=== PATIENT | male | born 1995 | race Caucasian/White ===

== ENCOUNTER 2023-12-27 18:26 | Inpatient (IN) ==
[2023-12-27] MEDS: ONDANSETRON INJ 2 MG/ML 2 ML VIAL ONE (19:14)
[2023-12-27] MEDS: ONDANSETRON INJ 2 MG/ML 2 ML VIAL IV STA (19:14)
[2023-12-27 19:34] LABS: Appearance Urine Clear (Clear); Bacteria Urine Automated None Seen (None Seen); Bilirubin Urine 2+ (Negative); Blood Urine Negative (Negative); Cast Urine Automated 0-2 /lpf (0-2); Color Urine Dark Yellow; Epithelial Cell Urine Auto 0-2 /hpf (0-2); Glucose Urine UA Negative (Negative); Ketones Urine Negative (Negative); Leukocyte Esterase Urine Trace (Negative); Nitrite Urine Negative (Negative); Protein Urine Negative (Negative); RBC Urine Automated 0-2 /hpf (0-2); Specific Gravity Urine 1.019 (1.000-1.030); Urobilinogen Urine Negative (Negative); WBC Urine Automated 0-5 /hpf (0-5)
[2023-12-27 19:35] LABS: Basophils # (auto) 0.08 K/uL (0.00-0.20); Basophils % (auto) 0.6 %; Eosinophils # (auto) 0.28 K/uL (0.00-0.50); Eosinophils % (auto) 2.2 %; Hematocrit (blood only) 41.7 % (37.0-47.0); Hemoglobin 14.1 g/dl (12.0-16.0); Immature Granulocytes # (auto) 0.04 K/uL (0.01-0.20); Immature Granulocytes % (auto) 0.3 %; Lymphocytes # (auto) 3.29 K/uL (1.20-3.40); Lymphocytes % (auto) 25.9 %; Mean Corpuscular Hemoglobin 29.8 pg (25.0-34.0); Mean Corpuscular Hgb Conc 33.8 g/dL (32.0-36.0); Mean Corpuscular Volume 88.2 fL (80.0-100.0); Mean Platelet Volume 10.6 fL (9.4-12.4); Monocytes # (auto) 0.65 K/uL (0.11-0.59); Monocytes % (auto) 5.1 %; Neutrophils # (auto) 8.35 K/uL (1.40-6.50); Neutrophils % (auto) 65.9 %; Platelet Count 347 K/uL (130-400); RDW Coefficient of Variation 13.1 % (11.5-14.5); RDW Standard Deviation 42.2 fL (36.4-46.3); Red Blood Count 4.73 M/uL (4.20-5.40); White Blood Count 12.69 K/ul (4.8-10.8)
[2023-12-27] MEDS: SODIUM CHLORIDE 0.9% 1,000 ML IV ONE (19:41)
[2023-12-27] MEDS: FAMOTIDINE 20MG IV PUSH 20 MG/5 ML SYR IV STA (19:41)
--- NOTE | 2023-12-27 19:42 | Emergency Department Note ---
Impression & Plan Transaminitis, Upper abdominal pain, Nausea & vomiting ED Provider Note NAME: ENEDELIA RICARDO AGE: 28 SEX: F : 1995 ARRIVES VIA: Walk-In INFORMANT: Patient ED PROVIDER(S): Quintin Moreno MD CHIEF COMPLAINT: upper abdominal pain, n/v PLAN: Disposition: Home MEDICAL DECISION MAKING: The patient is a pleasant 28-year-old transgender male to female person who presents to the emergency department via walk-in accompanied by her for evaluation of upper abdominal pain with nausea and vomiting that began yesterday after eating eggs for breakfast and worsened today after patient reports feeling some improvement and so decided to eat [employer] and then symptoms became acutely worse. She denies any fevers. She reports some loose stool but denies frequent diarrhea. She denies any cough, congestion, chest pain or shortness of breath. She denies any similar episodes of symptoms. She reports she has had CT imaging for appendicitis in the past in [place] where she recently moved from but was unaware of having gallstones at the time. Of note, the patient did arrive to emergency department during time of high volume, acuity and prolonged emergency department waiting times. Critical pathways initiated from triage. WBC 12.6 K with neutrophil predominance but no left shift, nonspecific. H/H and platelets within normal limits. Chemistry without metabolic acidosis. LFTs are elevated with total bilirubin 2.8, direct eleven 2.0 and AST and ALT 351 and 388, respectively with alk phos within normal limits. Lipase is not elevated. UA without evidence of infection. On evaluation the patient is no distress, afebrile stable vital signs. She has mild upper quadrant. Tenderness without guarding or rebound. She has a negative Modi sign. I did perform a limited bedside right upper quadrant ultrasound which demonstrates cholelithiasis without evidence of cholecystitis. Formal gallbladder ultrasound was ordered. This demonstrates cholelithiasis without sonographic evidence of acute cholecystitis. CBD is within normal limits at 4.3 mm without stones or dilatation. There is no pericholecystic fluid. Sonographic Modi sign is negative. Note is made of mild hepatomegaly with description of ill-defined heterogeneity within the right hepatic lobe which is nonspecific and pre and postcontrast CT of the abdomen pelvis is recommended for further evaluation if clinically warranted. Given the patient's upper abdominal pain with transaminitis of unclear chronicity CT imaging was then ordered. Upon my reevaluation patient did report some improvement after IV hydration, IM dicyclomine. However still with dull upper abdominal pain. Given no evidence of biliary obstruction on ultrasound suspect he will be biliary obstruction is less likely though not completely excluded. Given persistent symptoms patient did agree with plan for admission for further observation and testing, MRCP. [facility] will [facility] the patient for admission. CT of the abdomen pelvis with and without contrast subsequently with final radiology interpretation and no acute findings are identified. Specifically, diarrhea heterogeneity identified on prior ultrasound is not visualized. Findings likely represent very mild focal fatty infiltration. Further management per admitting team. Triage Nursing notes reviewed and agree them. Prior/external medical records reviewed Vital Signs: reviewed Differential diagnosis: Gastroenteritis, food borne illness, infections, appendicitis, diverticulitis, inflammatory bowel disease, obstruction, GI bleed, biliary pathology, volvulus, as well as other pathologies. ER treatment provided: See below. Diagnostics interpreted by me: Cardiac Monitoring: An order for continuous cardiac monitoring was placed and demonstrated normal sinus rhythm, 70 bpm, no ectopy. Laboratory studies: See below Imaging studies: See below Consultation(s): Case was discussed with Dr. Matamoros, [facility], who will evaluate the patient for admission. HPI: The patient is a pleasant 28-year-old transgender male to female person who presents to the emergency department via walk-in accompanied by her for evaluation of upper abdominal pain with nausea and vomiting that began yesterday after eating eggs for breakfast and worsened today after patient reports feeling some improvement and so decided to eat [employer] and then symptoms became acutely worse. She denies any fevers. She reports some loose stool but denies frequent diarrhea. She denies any cough, congestion, chest pain or shortness of breath. She denies any similar episodes of symptoms. She reports she has had CT imaging for appendicitis in the past in [place] where she recently moved from but was unaware of having gallstones at the time. ROS: See above HPI for pertinent positives & negatives. A total of 10 systems reviewed and were otherwise negative. VITALS:See Below PHYSICAL EXAMINATION: GENERAL: Awake, alert, fatigued-appearing, in no distress, BMI 37.1. HENT: Normocephalic, atraumatic. Oropharynx with dry mucous membranes and otherwise unremarkable. EYES: Normal conjunctiva. Sclera non-icteric. NECK: Supple. No nuchal rigidity. FROM. No JVD. RESPIRATORY: Clear to auscultation. CARDIAC: Regular rate, normal rhythm. Extremities warm and well perfused. Pulses equal. ABDOMEN: Soft, non-distended. Mild RUQ tenderness to palpation. No rebound or guarding. MUSCULOSKELETAL: Chest examination reveals no tenderness. The back is symmetrical on inspection without obvious abnormality. There is no CVA tenderness to palpation. No joint edema. LOWER EXTREMITIES: Calves are equal size bilaterally and non-tender. No edema. No discoloration. NEURO: Normal sensorium. No sensory or motor deficits noted. SKIN: No rash or jaundice noted. 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 Social History Smoking Status: Never smoker Preferred Language: Faroese Feels Safe at Home: Yes Gender Identity: Female Allergies Allergies Allergy/AdvReac Type Severity Reaction Status Date / Time Cephalosporins Allergy Severe Hives Verified 12/27/23 22:13 Home Meds Home Medications Medication Instructions Recorded Confirmed cetirizine 10 mg tablet (Zyrtec) 10 mg PO DAILY 12/27/23 12/27/23 escitalopram oxalate 20 mg tablet 20 mg PO QAM 12/27/23 12/27/23 estradiol valerate 20 mg/mL See Rx Instructions .Route .COMPLEX 12/27/23 12/27/23 intramuscular oil levothyroxine 50 mcg tablet 50 mcg PO DAILYBB 12/27/23 12/27/23 omeprazole 20 mg capsule,delayed 20 mg PO QAM 12/27/23 12/27/23 release progesterone micronized 200 mg 200 mg PO HS 12/27/23 12/27/23 capsule spironolactone 50 mg tablet 50 mg PO AMHS 12/27/23 12/27/23 Results & Data (ED) Vital Signs Vital Signs - 24 hr 12/27/23 18:40 12/27/23 19:23 12/27/23 19:29 Temperature 37 C Temperature Source Temporal Artery Scan Pulse Rate 70 70 Pulse Rate [Apical] Respiratory Rate 18 18 Respiratory Effort / Characteristics Non-Labored Respiratory Depth Normal Respiratory Pattern Blood Pressure 132/86 Blood Pressure [Right Arm] Blood Pressure Mean 101 Blood Pressure Mean [Right Arm] Pulse Oximetry 99 97 Oxygen Delivery Method Room Air Room Air Sepsis Recent Fever Within 48 Hours No Sepsis New/Unexplained Change in Mental Status No Sepsis Action Taken by Nursing No Action Required 12/27/23 19:34 12/27/23 21:00 12/27/23 23:00 Temperature Temperature Source Pulse Rate 73 Pulse Rate [Apical] 79 60 Respiratory Rate 18 18 Respiratory Effort / Characteristics Non-Labored Non-Labored Respiratory Depth Normal Normal Respiratory Pattern Regular Regular Blood Pressure Blood Pressure [Right Arm] 131/94 129/90 Blood Pressure Mean Blood Pressure Mean [Right Arm] 106 103 Pulse Oximetry 98 98 Oxygen Delivery Method Room Air Room Air Sepsis Recent Fever Within 48 Hours Sepsis New/Unexplained Change in Mental Status Sepsis Action Taken by Nursing 12/27/23 23:45 12/28/23 01:00 Temperature Temperature Source Pulse Rate 62 Pulse Rate [Apical] 60 Respiratory Rate 18 Respiratory Effort / Characteristics Non-Labored Respiratory Depth Normal Respiratory Pattern Blood Pressure Blood Pressure [Right Arm] 133/88 Blood Pressure Mean Blood Pressure Mean [Right Arm] 103 Pulse Oximetry 97 Oxygen Delivery Method Room Air Sepsis Recent Fever Within 48 Hours Sepsis New/Unexplained Change in Mental Status Sepsis Action Taken by Nursing Laboratory Data Attestation: I reviewed the patient's lab results. 12/27/23 19:15 12/27/23 19:15 Lab Results 12/27/23 Range/Units 19:15 WBC 12.69 H (4.8-10.8) K/ul RBC 4.73 (4.20-5.40) M/uL Hgb 14.1 (12.0-16.0) g/dl Hct 41.7 (37.0-47.0) % MCV 88.2 (80.0-100.0) fL MCH 29.8 (25.0-34.0) pg MCHC 33.8 (32.0-36.0) g/dL RDW Std Deviation 42.2 (36.4-46.3) fL RDW Coeff of Radha 13.1 (11.5-14.5) % Plt Count 347 (130-400) K/uL MPV 10.6 (9.4-12.4) fL Immature Gran % (Auto) 0.3 % Neut % (Auto) 65.9 % Lymph % (Auto) 25.9 % Fisher % (Auto) 5.1 % Eos % (Auto) 2.2 % Baso % (Auto) 0.6 % Neut # (Auto) 8.35 H (1.40-6.50) K/uL Lymph # (Auto) 3.29 (1.20-3.40) K/uL Fisher # (Auto) 0.65 H (0.11-0.59) K/uL Eos # (Auto) 0.28 (0.00-0.50) K/uL Baso # (Auto) 0.08 (0.00-0.20) K/uL Immature Gran # (Auto) 0.04 (0.01-0.20) K/uL Sodium 135 L (136-145) mmol/L Potassium 4.2 (3.5-5.1) mmol/L Chloride 103 (98-107) mmol/L Carbon Dioxide 25 (21-32) mmol/L Anion Gap 7 (3-11) BUN 11 (6-23) mg/dl Creatinine 0.87 (0.6-1.2) mg/dl Est Cr Clr Drug Dosing 148.9 ml/min Est GFR ( Amer) 106.6 ml/min Est GFR (Non-Af Amer) 91.9 ml/min BUN/Creatinine Ratio 12.6 (10-20) Glucose 101 H (70-99(Fasting)) mg/dl Calcium 9.5 (8.6-10.3) mg/dl Total Bilirubin 2.8 H (0.2-1.0) mg/dl Direct Bilirubin 2.0 H (0-0.2) mg/dl AST 351 H (13-39) U/L ALT 388 H (7-52) U/L Alkaline Phosphatase 85 (34-104) U/L Total Protein 7.5 (6.0-8.3) gm/dl Albumin 4.7 (3.4-5.0) gm/dl Globulin 2.8 (2.5-4.0) gm/dl Albumin/Globulin Ratio 1.7 (0.9-2) Lipase 31 (11-82) U/L HCG, Qual Negative (Negative) Urine Color Dark Yellow Urine Appearance Clear (Clear) Urine pH 6.0 (4.5-7.5) Ur Specific [place] 1.019 (1.000-1.030) Urine Protein Negative (Negative) Urine Glucose (UA) Negative (Negative) Urine Ketones Negative (Negative) Urine Blood Negative (Negative) Urine Nitrite Negative (Negative) Urine Bilirubin 2+ H (Negative) Urine Urobilinogen Negative (Negative) Ur Leukocyte Esterase Trace H (Negative) Urine WBC (Auto) 0-5 (0-5) /hpf Urine RBC (Auto) 0-2 (0-2) /hpf U Hyaline Cast (Auto) 0-2 (0-2) /lpf U Epithel Cells (Auto) 0-2 (0-2) /hpf Urine Bacteria (Auto) None Seen (None Seen) Administered Medications Discontinued Medications Dicyclomine HCl (Dicyclomine Hcl 10 Mg/Ml 2 Ml Amp/Vial) 20 mg IM NOW ONE Stop: 12/27/23 22:41 Last Admin: 12/27/23 23:11 Dose: 20 mg Documented By: SHIRIN Sodium Chloride (Nss) 1,000 mls @ 999 mls/hr IV .Q1H1M ONE Stop: 12/27/23 20:36 Last Infusion: 12/27/23 21:19 Dose: Infused Documented By: Admin: 12/27/23 19:41 Dose: 999 mls/hr Documented By: DENISE Famotidine (Pepcid 20mg Iv Push) 20 mg in 5 mls @ 2.5 mls/min IV NOW STA Stop: 12/27/23 19:37 Last Admin: 12/27/23 19:41 Dose: 2.5 mls/min Documented By: DENISE Ioversol (Optiray 320 100ml) 94 ml IV ONCE ONE Stop: 12/27/23 22:12 Last Admin: 12/27/23 22:11 Dose: 94 ml Documented By: ROLANDO Ondansetron HCl (Ondansetron Inj 2 Mg/Ml 2 Ml Vial) 4 mg IV NOW STA Stop: 12/27/23 19:11 Last Admin: 12/27/23 19:14 Dose: 4 mg Documented By: BE Ondansetron HCl (Ondansetron Inj 2 Mg/Ml 2 Ml Vial) Confirm Administered Dose 4 mg .ROUTE .[employer] Live Chat ONE Stop: 12/27/23 19:12 Last Admin: 12/27/23 19:14 Dose: Not Given Documented By: GGG Imaging Data Radiologist's Impression: Gallbladder Ultrasound 12/27/23 20:03 Exam(s): US GALLBLADDER EXAM: US Abdomen Limited, Gallbladder CLINICAL HISTORY: Reason for exam: RUQ abd pain transaminitis. TECHNIQUE: Real-time ultrasound of the right upper quadrant with image documentation. COMPARISON: No relevant prior studies available. FINDINGS: Liver: Mild hepatomegaly. Area of ill-defined heterogeneity within the right hepatic lobe. Gallbladder: Cholelithiasis. Gallbladder wall there is within normal limits measuring 3 mm. No pericholecystic fluid. Sonographic Modi sign is negative. Common bile duct: Common bile duct within normal limits measuring 4.3 mm. No stones. No dilation. Pancreas: Unremarkable as visualized. Right kidney: Unremarkable. No stones. No right-sided hydronephrosis. IMPRESSION: Cholelithiasis without sonographic evidence of acute cholecystitis Hepatomegaly and ill-defined area of heterogeneity within the right hepatic lobe. This is a nonspecific finding. Pre-and postcontrast CT of the abdomen and pelvis may be obtained for further evaluation if clinically warranted. Electronically signed by: Willem Lin MD 12/27/23 21:34 PM Abdomen/Pelvis CT 12/27/23 21:43 Exam(s): CT ABDOMEN + PELVIS W/WO Contrast IV Amt: 94 ml optiray 320 EXAM: CT Abdomen and Pelvis Without and With Intravenous Contrast CLINICAL HISTORY: Reason for exam: RUQ abd pain, tranaminitis, eval liver heterogeneity. TECHNIQUE: Axial computed tomography images of the abdomen and pelvis without and with intravenous contrast. Automated exposure control was utilized for the study. A dose lowering technique was utilized adhering to the principles of ALARA. CONTRAST: Patient received 94 ml optiray 320 of IV contrast COMPARISON: Reference made to prior ultrasound performed earlier on the same date FINDINGS: Lung bases: Unremarkable. No mass. No consolidation. ABDOMEN: Liver: The area of heterogeneity within the right hepatic lobe described on the prior ultrasound is not seen on the current study. Mild hepatomegaly. Gallbladder and bile ducts: Cholelithiasis without evidence of acute cholecystitis. No ductal dilation. Pancreas: Unremarkable. No mass. No ductal dilation. Spleen: Unremarkable. No splenomegaly. Adrenals: Unremarkable. No mass. Kidneys and ureters: Unremarkable. No solid mass. No obstructing stones. No hydronephrosis. Stomach and bowel: Unremarkable. No obstruction. No mucosal thickening. PELVIS: Appendix: Postoperative changes prior appendectomy. Bladder: Unremarkable. No mass. No stones. Reproductive: Unremarkable as visualized. ABDOMEN and PELVIS: Intraperitoneal space: Unremarkable. No free air. No significant fluid collection. Bones/joints: No acute fracture. No dislocation. Soft tissues: Unremarkable. Vasculature: Unremarkable. No abdominal aortic aneurysm. Lymph nodes: Unremarkable. No enlarged lymph nodes. IMPRESSION: No acute findings in the abdomen or pelvis. Specifically the area of heterogeneity identified within the right hepatic lobe on the prior ultrasound is not seen on this exam. Findings likely represent very mild focal fatty infiltration. Electronically signed by: Willem Lin MD 12/28/23 00:00 AM Discharge Plan Visit Data Chief Complaint: Abdominal Pain Stated Complaint: UPPER ABD PAIN ED Provider: Quintin Moreno Discharge Problem: Transaminitis, Upper abdominal pain, Nausea & vomiting Forms [facility] Prescriptions: No Action estradiol valerate 20 mg/mL oil See Rx Instructions .ROUTE .COMPLEX Rx Instructions: inject 0.35 ml into a large muscle once a week on WEDNESDAYS levothyroxine 50 mcg tablet 50 mcg PO DAILYBB progesterone micronized 200 mg capsule 200 mg PO HS omeprazole 20 mg capsule,delayed release(DR/EC) 20 mg PO QAM spironolactone 50 mg tablet 50 mg PO AMHS escitalopram oxalate 20 mg tablet 20 mg PO QAM cetirizine [Zyrtec] 10 mg Tablet 10 mg PO DAILY Referrals Referrals: Melanie John MD [Primary Care Provider] - Discharge Problem: Nausea & vomiting Qualifiers: Vomiting type: unspecified Qualified Code(s): R11.2 - Nausea with vomiting, unspecified
[2023-12-27 19:50] LABS: Albumin Globulin Ratio 1.7 (0.9-2); Albumin Level 4.7 gm/dl (3.4-5.0); BUN Creatinine Ratio 12.6 (10-20); Bilirubin,Total 2.8 mg/dl (0.2-1.0); Calcium 9.5 mg/dl (8.6-10.3); Creatinine Clr Calc Pharmacy 148.9 ml/min; Est GFR (African American) 106.6 ml/min; Est GFR (Non-African American) 91.9 ml/min; Globulin 2.8 gm/dl (2.5-4.0); Potassium 4.2 mmol/L (3.5-5.1); Total Protein 7.5 gm/dl (6.0-8.3)
[2023-12-27 20:02] LABS: Pregnancy Test, Serum Negative (Negative)
--- NOTE | 2023-12-27 21:35 | Ultrasound Report ---
Exam(s): US GALLBLADDER EXAM: US Abdomen Limited, Gallbladder CLINICAL HISTORY: Reason for exam: RUQ abd pain transaminitis. TECHNIQUE: Real-time ultrasound of the right upper quadrant with image documentation. COMPARISON: No relevant prior studies available. FINDINGS: Liver: Mild hepatomegaly. Area of ill-defined heterogeneity within the right hepatic lobe. Gallbladder: Cholelithiasis. Gallbladder wall there is within normal limits measuring 3 mm. No pericholecystic fluid. Sonographic Modi sign is negative. Common bile duct: Common bile duct within normal limits measuring 4.3 mm. No stones. No dilation. Pancreas: Unremarkable as visualized. Right kidney: Unremarkable. No stones. No right-sided hydronephrosis. IMPRESSION: Cholelithiasis without sonographic evidence of acute cholecystitis Hepatomegaly and ill-defined area of heterogeneity within the right hepatic lobe. This is a nonspecific finding. Pre-and postcontrast CT of the abdomen and pelvis may be obtained for further evaluation if clinically warranted. Electronically signed by: Willem Lin MD 12/27/23 21:34 PM
[2023-12-27] MEDS: OPTIRAY 320 100ml IV ONE (22:11)
[2023-12-27] MEDS: DICYCLOMINE HCL 10 MG/ML 2 ML AMP/VIAL IM ONE (23:11)
--- NOTE | 2023-12-28 | CT Scan Report ---
Exam(s): CT ABDOMEN + PELVIS W/WO Contrast IV Amt: 94 ml optiray 320 EXAM: CT Abdomen and Pelvis Without and With Intravenous Contrast CLINICAL HISTORY: Reason for exam: RUQ abd pain, tranaminitis, eval liver heterogeneity. TECHNIQUE: Axial computed tomography images of the abdomen and pelvis without and with intravenous contrast. Automated exposure control was utilized for the study. A dose lowering technique was utilized adhering to the principles of ALARA. CONTRAST: Patient received 94 ml optiray 320 of IV contrast COMPARISON: Reference made to prior ultrasound performed earlier on the same date FINDINGS: Lung bases: Unremarkable. No mass. No consolidation. ABDOMEN: Liver: The area of heterogeneity within the right hepatic lobe described on the prior ultrasound is not seen on the current study. Mild hepatomegaly. Gallbladder and bile ducts: Cholelithiasis without evidence of acute cholecystitis. No ductal dilation. Pancreas: Unremarkable. No mass. No ductal dilation. Spleen: Unremarkable. No splenomegaly. Adrenals: Unremarkable. No mass. Kidneys and ureters: Unremarkable. No solid mass. No obstructing stones. No hydronephrosis. Stomach and bowel: Unremarkable. No obstruction. No mucosal thickening. PELVIS: Appendix: Postoperative changes prior appendectomy. Bladder: Unremarkable. No mass. No stones. Reproductive: Unremarkable as visualized. ABDOMEN and PELVIS: Intraperitoneal space: Unremarkable. No free air. No significant fluid collection. Bones/joints: No acute fracture. No dislocation. Soft tissues: Unremarkable. Vasculature: Unremarkable. No abdominal aortic aneurysm. Lymph nodes: Unremarkable. No enlarged lymph nodes. IMPRESSION: No acute findings in the abdomen or pelvis. Specifically the area of heterogeneity identified within the right hepatic lobe on the prior ultrasound is not seen on this exam. Findings likely represent very mild focal fatty infiltration. Electronically signed by: Willem Lin MD 12/28/23 00:00 AM
[2023-12-28] MEDS ORDERED: HYDROmorphone INJ 0.5 MG/0.5 ML SYR IV PRN ×2 (02:03)
[2023-12-28] MEDS ORDERED: ONDANSETRON INJ 2 MG/ML 2 ML VIAL IV PRN (02:03)
--- NOTE | 2023-12-28 02:32 | History & Physical Report ---
Date of Service December 28, 2023 Assessment & Plan (1) Upper abdominal pain: Plan: 28-year-old transgender male to female with past med history significant for hypothyroidism, tracheobronchomalacia, recurrent sinus infection, mild persistent asthma, GERD, history of scrotal mass, migraine, depression presents with abdominal pain and found to have elevated LFTs. Patient states around noon time noticed pain in the abdomen in the right upper quadrant region associated with some nausea and vomiting which prompted patient to come to ER. Currently pain is improved. Denies any fevers. No chest pain or shortness of breath. No cough. No headache no dizziness , no blurred vision. No runny nose or sore throat.. Appetite has been down for last couple of days. Normal bowel and bladder movements. Currently resting comfortably and hemodynamically stable. Upper abdominal pain Total bilirubin 2.8 Direct bilirubin 2 AST 351 ALT 388 Alkaline phosphatase 85 Gallbladder ultrasound shows cholelithiasis without evidence of acute cholecystitis. Questionable heterogenicity within the right hepatic lobe CT abdomen pelvis with and without contrast no acute findings Follow repeat labs in a.m. N.p.o. for now IV fluids Pain control Will follow acute hepatitis panel Consult GI in a.m. for further recommendations Depression Lexapro GERD Omeprazole Hypothyroidism Synthyroid DVT prophylaxis SCDs for now Disposition Medical floor Full code. History of Present Illness Chief Complaint: Abdominal pain Primary Care Provider: Melanie John MD 28-year-old transgender male to female with past med history significant for hypothyroidism, tracheobronchomalacia, recurrent sinus infection, mild persistent asthma, GERD, history of scrotal mass, migraine, depression presents with abdominal pain and found to have elevated LFTs. Patient states around noon time noticed pain in the abdomen in the right upper quadrant region associated with some nausea and vomiting which prompted patient to come to ER. Currently pain is improved. Denies any fevers. No chest pain or shortness of breath. No cough. No headache no dizziness , no blurred vision. No runny nose or sore throat.. Appetite has been down for last couple of days. Normal bowel and bladder movements. Currently resting comfortably and hemodynamically stable. Past medical history. As mentioned above Past surgical history. Partial removal of benign left thyroid lobe. Appendectomy. Tonsillectomy and adenoidectomy. Repair of inguinal inguinal hernia. Sinus surgery. Social history. No smoking. Drinks alcohol. No drug use. Family history. Mother had Alzheimer's disease. Sister anxiety disorder. Depression. Father had heart disorder. Bradycardia. TIA. Allergies Allergy/AdvReac Type Severity Reaction Status Date / Time Cephalosporins Allergy Severe Hives Verified 12/27/23 22:13 Home Medications Medication Instructions Recorded Confirmed Type cetirizine 10 mg tablet (Zyrtec) 10 mg PO DAILY 12/27/23 12/27/23 History escitalopram oxalate 20 mg tablet 20 mg PO QAM 12/27/23 12/27/23 History estradiol valerate 20 mg/mL See Rx Instructions .Route .COMPLEX 12/27/23 12/27/23 History intramuscular oil levothyroxine 50 mcg tablet 50 mcg PO DAILYBB 12/27/23 12/27/23 History omeprazole 20 mg capsule,delayed 20 mg PO QAM 12/27/23 12/27/23 History release progesterone micronized 200 mg 200 mg PO HS 12/27/23 12/27/23 History capsule spironolactone 50 mg tablet 50 mg PO AMHS 12/27/23 12/27/23 History Past Med/Surg History Problem List (Updated 12/28/23 @ 00:02 by Quintin Moreno MD) Nausea & vomiting (Acute) Upper abdominal pain (Acute) Transaminitis (Acute) Medical History Transgender person on hormone therapy Social History Smoking Status: Never smoker Hx Alcohol Use: Yes Alcohol type: wine Hx Substance Use: No Preferred Language: Azeri Communication Ability: Effective School Child Care Attendant Required: No Beliefs That Will Affect Care: None Current Living Situation: Spouse Feels Safe at Home: Yes Safety Concerns: Feels Safe At This Time Gender Identity: Female Assistive Devices: None Review of Systems Review of Systems: All systems reviewed & are unremarkable except as noted in HPI & below Physical Exam Physical Exam: General- Not in distress Head- atraumatic Eyes- PERRL. ENT- oropharynx clear Neck- supple, no JVD. Lungs- clear to auscultation no wheezing or crackles Heart- regular rhythm; no murmur, no gallop. Abdomen- normal bowel sounds, soft, ruq tenderness present, no distension Extremities- no pretibial edema, no erythema seen. Neuro- alert, oriented PERRL, no facial palsy; no dysarthria; moves extremities. Results & Data Results & Data Vital Signs (Past 12 Hours) Vital Signs Temp Pulse Pulse Resp BP BP Pulse Ox 12/28/23 01:00 60 18 133/88 97 12/27/23 23:45 62 12/27/23 23:00 60 18 129/90 98 12/27/23 21:00 79 18 131/94 98 12/27/23 19:34 73 12/27/23 19:29 70 18 97 12/27/23 18:40 37 C 70 18 132/86 99 O2 Del Method 12/28/23 01:00 Room Air 12/27/23 23:45 12/27/23 23:00 Room Air 12/27/23 21:00 Room Air 12/27/23 19:34 12/27/23 19:29 Room Air 12/27/23 18:40 Room Air Diagnostic Findings Laboratory Results WBC 12.69 K/ul (4.8-10.8) H 12/27/23 19:15 RBC 4.73 M/uL (4.20-5.40) 12/27/23 19:15 Hgb 14.1 g/dl (12.0-16.0) 12/27/23 19:15 Hct 41.7 % (37.0-47.0) 12/27/23 19:15 MCV 88.2 fL (80.0-100.0) 12/27/23 19:15 MCH 29.8 pg (25.0-34.0) 12/27/23 19:15 MCHC 33.8 g/dL (32.0-36.0) 12/27/23 19:15 RDW Std Deviation 42.2 fL (36.4-46.3) 12/27/23 19:15 RDW Coeff of Radha 13.1 % (11.5-14.5) 12/27/23 19:15 Plt Count 347 K/uL (130-400) 12/27/23 19:15 MPV 10.6 fL (9.4-12.4) 12/27/23 19:15 Immature Gran % (Auto) 0.3 % 12/27/23 19:15 Neut % (Auto) 65.9 % 12/27/23 19:15 Lymph % (Auto) 25.9 % 12/27/23 19:15 [place] % (Auto) 5.1 % 12/27/23 19:15 Eos % (Auto) 2.2 % 12/27/23 19:15 Baso % (Auto) 0.6 % 12/27/23 19:15 Neut # (Auto) 8.35 K/uL (1.40-6.50) H 12/27/23 19:15 Lymph # (Auto) 3.29 K/uL (1.20-3.40) 12/27/23 19:15 [place] # (Auto) 0.65 K/uL (0.11-0.59) H 12/27/23 19:15 Eos # (Auto) 0.28 K/uL (0.00-0.50) 12/27/23 19:15 Baso # (Auto) 0.08 K/uL (0.00-0.20) 12/27/23 19:15 Immature Gran # (Auto) 0.04 K/uL (0.01-0.20) 12/27/23 19:15 Sodium 135 mmol/L (136-145) L 12/27/23 19:15 Potassium 4.2 mmol/L (3.5-5.1) 12/27/23 19:15 Chloride 103 mmol/L (98-107) 12/27/23 19:15 Carbon Dioxide 25 mmol/L (21-32) 12/27/23 19:15 Anion Gap 7 (3-11) 12/27/23 19:15 BUN 11 mg/dl (6-23) 12/27/23 19:15 Creatinine 0.87 mg/dl (0.6-1.2) 12/27/23 19:15 Est Cr Clr Drug Dosing 148.9 ml/min 12/27/23 19:15 Est GFR ( Amer) 106.6 ml/min 12/27/23 19:15 Est GFR (Non-Af Amer) 91.9 ml/min 12/27/23 19:15 BUN/Creatinine Ratio 12.6 (10-20) 12/27/23 19:15 Glucose 101 mg/dl (70-99(Fasting)) H 12/27/23 19:15 Calcium 9.5 mg/dl (8.6-10.3) 12/27/23 19:15 Total Bilirubin 2.8 mg/dl (0.2-1.0) H 12/27/23 19:15 Direct Bilirubin 2.0 mg/dl (0-0.2) H 12/27/23 19:15 AST 351 U/L (13-39) H 12/27/23 19:15 ALT 388 U/L (7-52) H 12/27/23 19:15 Alkaline Phosphatase 85 U/L (34-104) 12/27/23 19:15 Total Protein 7.5 gm/dl (6.0-8.3) 12/27/23 19:15 Albumin 4.7 gm/dl (3.4-5.0) 12/27/23 19:15 Globulin 2.8 gm/dl (2.5-4.0) 12/27/23 19:15 Albumin/Globulin Ratio 1.7 (0.9-2) 12/27/23 19:15 Lipase 31 U/L (11-82) 12/27/23 19:15 HCG, Qual Negative (Negative) 12/27/23 19:15 Urine Color Dark Yellow 12/27/23 19:15 Urine Appearance Clear (Clear) 12/27/23 19:15 Urine pH 6.0 (4.5-7.5) 12/27/23 19:15 Ur Specific [place] 1.019 (1.000-1.030) 12/27/23 19:15 Urine Protein Negative (Negative) 12/27/23 19:15 Urine Glucose (UA) Negative (Negative) 12/27/23 19:15 Urine Ketones Negative (Negative) 12/27/23 19:15 Urine Blood Negative (Negative) 12/27/23 19:15 Urine Nitrite Negative (Negative) 12/27/23 19:15 Urine Bilirubin 2+ (Negative) H 12/27/23 19:15 Urine Urobilinogen Negative (Negative) 12/27/23 19:15 Ur Leukocyte Esterase Trace (Negative) H 12/27/23 19:15 Urine WBC (Auto) 0-5 /hpf (0-5) 12/27/23 19:15 Urine RBC (Auto) 0-2 /hpf (0-2) 12/27/23 19:15 U Hyaline Cast (Auto) 0-2 /lpf (0-2) 12/27/23 19:15 U Epithel Cells (Auto) 0-2 /hpf (0-2) 12/27/23 19:15 Urine Bacteria (Auto) None Seen (None Seen) 12/27/23 19:15 Impressions Gallbladder Ultrasound 12/27/23 20:03 Exam(s): US GALLBLADDER EXAM: US Abdomen Limited, Gallbladder CLINICAL HISTORY: Reason for exam: RUQ abd pain transaminitis. TECHNIQUE: Real-time ultrasound of the right upper quadrant with image documentation. COMPARISON: No relevant prior studies available. FINDINGS: Liver: Mild hepatomegaly. Area of ill-defined heterogeneity within the right hepatic lobe. Gallbladder: Cholelithiasis. Gallbladder wall there is within normal limits measuring 3 mm. No pericholecystic fluid. Sonographic Modi sign is negative. Common bile duct: Common bile duct within normal limits measuring 4.3 mm. No stones. No dilation. Pancreas: Unremarkable as visualized. Right kidney: Unremarkable. No stones. No right-sided hydronephrosis. IMPRESSION: Cholelithiasis without sonographic evidence of acute cholecystitis Hepatomegaly and ill-defined area of heterogeneity within the right hepatic lobe. This is a nonspecific finding. Pre-and postcontrast CT of the abdomen and pelvis may be obtained for further evaluation if clinically warranted. Electronically signed by: Willem Lin MD 12/27/23 21:34 PM Abdomen/Pelvis CT 12/27/23 21:43 Exam(s): CT ABDOMEN + PELVIS W/WO Contrast IV Amt: 94 ml optiray 320 EXAM: CT Abdomen and Pelvis Without and With Intravenous Contrast CLINICAL HISTORY: Reason for exam: RUQ abd pain, tranaminitis, eval liver heterogeneity. TECHNIQUE: Axial computed tomography images of the abdomen and pelvis without and with intravenous contrast. Automated exposure control was utilized for the study. A dose lowering technique was utilized adhering to the principles of ALARA. CONTRAST: Patient received 94 ml optiray 320 of IV contrast COMPARISON: Reference made to prior ultrasound performed earlier on the same date FINDINGS: Lung bases: Unremarkable. No mass. No consolidation. ABDOMEN: Liver: The area of heterogeneity within the right hepatic lobe described on the prior ultrasound is not seen on the current study. Mild hepatomegaly. Gallbladder and bile ducts: Cholelithiasis without evidence of acute cholecystitis. No ductal dilation. Pancreas: Unremarkable. No mass. No ductal dilation. Spleen: Unremarkable. No splenomegaly. Adrenals: Unremarkable. No mass. Kidneys and ureters: Unremarkable. No solid mass. No obstructing stones. No hydronephrosis. Stomach and bowel: Unremarkable. No obstruction. No mucosal thickening. PELVIS: Appendix: Postoperative changes prior appendectomy. Bladder: Unremarkable. No mass. No stones. Reproductive: Unremarkable as visualized. ABDOMEN and PELVIS: Intraperitoneal space: Unremarkable. No free air. No significant fluid collection. Bones/joints: No acute fracture. No dislocation. Soft tissues: Unremarkable. Vasculature: Unremarkable. No abdominal aortic aneurysm. Lymph nodes: Unremarkable. No enlarged lymph nodes. IMPRESSION: No acute findings in the abdomen or pelvis. Specifically the area of heterogeneity identified within the right hepatic lobe on the prior ultrasound is not seen on this exam. Findings likely represent very mild focal fatty infiltration. Electronically signed by: Willem Lin MD 12/28/23 00:00 AM Code Status & VTE Plan VTE Prophylaxis Plan VTE Prophylaxis will be ordered: Yes
[2023-12-28] MEDS: SPIRONOLACTONE 25 MG TAB PO STA (02:37)
[2023-12-28] MEDS: SODIUM CHLORIDE 0.9% 1,000 ML IV SCH (02:39)
--- OUTSIDE RECORDS SUMMARY | 2023-12-28 04:47 | External Medical Summary | Summary of Care ---
Author Name Unknown Organization [facility] Address [address] [place] [address] Phone [phone] Care Team Providers Care Swine Nutritionist Name Role Phone Hollis John MD Primary Care Provider Reason for Visit * Reason Onset Date Comments Medication Refill 10/31/2023 Encounter Details Date Type Department Care Team (Late st Contact Info) Description 10/31/2023 Refill Family Practice [facility] [address] [place] [id number] Jesus Carroll MD [address] [facility] [id number] Gender dysphoria in adult Allergies Active Allergy Reactions Criticality Noted Date Comments Cephalosporins Edema face/lips/tongue,Rash High 12/25 documented as of this encounter (statuses as of 10/31/2023) Medications Medication Sig Dispensed Refills Start Date End Date Status Albuterol Sulfate (5 MG/ML) 0.5% Inhalation Nebulization Solution (Proventil) Inhale via nebulizer every 6 hours as needed for Wheezing. Active Lidocaine HCl 1 % Injection Solution Use as directed in nebulizer for asthma/tracheom alasia. 01/17/2023 Active BD Disp Needle 23G X 1"Indications:Gende r dysphoria in adult USE DIRECTED WITH INJECTIONS 100 Each 1 01/25/2023 Active BD Hypodermic Needle 18G X 1"Indications:Gende r dysphoria in adult USE DIRECTED WITH INJECTIONS 100 Each 1 01/25/2023 Active BD Plastipak Syringe 3 MLIndications:Gende r dysphoria in adult USE DIRECTED WITH INJECTIONS 200 Each 01/25/2023 Active Triamcinolone Acetonide 0.5 % External Cream (Aristocort)Indicat ions:Intrinsic eczema Apply topically to affected area 2 times a day. To affected area. 60 g 5 05/24/2023 Active Cetirizine HCl 10 MG Oral Tablet (ZyrTEC)Indications :Intrinsic eczema Take 1 Tablet by mouth in the morning. 90 Tablet 3 05/24/2023 Active Omeprazole 20 MG Oral Capsule Delayed Release (PriLOSEC) Take 1 Capsule by mouth in the morning. 90 Capsule 1 07/26/2023 Active Levothyroxine Sodium 50 MCG Oral Tablet (Levoxyl) TAKE 1 TABLET BY MOUTH ONCE DAILY IN THE MORNING ON AN EMPTY STOMACH 90 Tablet 3 08/03/2023 Active Estradiol Valerate 20 MG/ML Intramuscular Oil (Delestrogen)Indica tions:Gender dysphoria in adult Inject 0.35 mL into a large muscle once a week. 5 mL 1 09/27/2023 Active Escitalopram Oxalate 20 MG Oral Tablet (Lexapro) Take 1 Tablet by mouth in the morning. 30 Tablet 1 09/30/2023 Active Spironolactone 50 MG Oral Tablet (Aldactone) Take 1 Tablet by mouth in the morning and 1 Tablet before bedtime. 60 Tablet 09/30/2023 Active Omeprazole 20 MG Oral Capsule Delayed Release (PriLOSEC) Take 1 Capsule by mouth in the morning. 30 Capsule 09/30/2023 Active Progesterone 200 MG Oral Capsule (Prometrium)Indicat ions:Gender dysphoria in adult Take 1 Capsule by mouth every night at bedtime. 30 Capsule 09/30/2023 Active Progesterone 200 MG Oral Capsule (Prometrium)Indicat ions:Gender dysphoria in adult Take 1 Capsule by mouth every night at bedtime. 90 Capsule 1 10/31/2023 Active Progesterone 200 MG Oral Capsule (Prometrium)Indicat ions:Gender dysphoria in adult Take 1 Capsule by mouth every night at bedtime. 90 Capsule 1 04/14/2023 Discontinue d(Refill) Escitalopram Oxalate 20 MG Oral Tablet (Lexapro) Take 1 Tablet by mouth in the morning. 90 Tablet 1 06/30/2023 4 Discontinue d(Refill) Spironolactone 50 MG Oral Tablet (Aldactone) Take 1 Tablet by mouth in the morning and 1 Tablet before bedtime. 180 Tablet 1 06/30/2023 4 Discontinue d(Refill) Hospital, Clinic, or Other Facility Administered Medication Ordered Dose Route Frequency Start Date End Date Status Albuterol Sulfate (Proventil) (2.5 MG/3ML) 0.083% inhalation solution 2.5 mgIndications:Tracheobron chomalacia 2.5 mg NEBULIZER Q4H PRN 02/09/2023 Active documented as of this encounter (statuses as of 10/31/2023) Active Problems Problem Noted Date Diagnosed Date Recurrent major depressive disorder 04/14/2023 Scrotal mass 04/14/2023 Mild persistent asthma with exacerbation 023 Environmental allergies 02/09/2023 Migraine headache with aura 01/13/2023 Overview: 2000 Recurrent sinus infections 01/13/2023 Major depressive disorder 01/13/2023 Insomnia 01/13/2023 Hypothyroidism 04/25/2015 Acid reflux 04/25/2015 Overview: pH meter for diagnosis Tracheobronchomalacia 04/25/2014 Overview: with peripheral asthma documented as of this encounter (statuses as of 10/31/2023) Immunizations Name Administration Dates Next Due COVID-19, MRNA-LNP, 23-24, P F, 30 MCG/0.3 mL, 12 YRS AND ABOVE, IM (PFIZER-Comirnaty) 01/24/2023 HPV Vaccine, 9-Valent 05/18/2023,04/14/2023 Pneumococcal Conjugate Vaccine, 20-valent (Prevn ar20) 02/16/2023 Seasonal Influenza, PF, 6 M & above, IM , (FluLaval or Fluzone) 01/13/2023 TDAP (age 10 and older)(Boostrix) 12/21/2022 documented as of this encounter Social History Tobacco Use Types Packs/Day Years Used Date Smoking Tobacco: Never Smokeless Tobacco: Never Alcohol Use Standard Drinks/Week Comments Yes 0 (1 standard drink = 0.6 oz pur e alcohol) PHQ-2 Answer Date Recorded PHQ Adult Total Score 2 01/13/2023 Hunger Vital Sign Answer Date Recorded Within the past 12 months, y ou worried that your food would run out before you got the money to buy more. Never true 01/13/20 23 Within the past 12 months, t he food you bought just didn't last and you didn't have money to get more. Never true 01/12/2023 Childcare Answer Date Recorded Do you feel overwhelmed with taking care of a child, family member or friend? No 01/12/2023 Does your family need help f inding childcare? (Household - for ages 0-17 years) Not on file 01/12/2023 Clothing Answer Date Recorded Have you been unable to get clothing when it was really needed? No 01/12/2023 Is your family able to get c lothes or diapers when needed? (Household - for ages 0-17 years) Not on file 01/12/2023 Personal Safety Answer Date Recorded Do you feel unsafe or have concerns for your saf ety? No 01/12/2023 Do you have concerns for you r family's safety? (Household - for ages 0-17 years) Not on file 01/12/2023 Utilities Answer Date Recorded Do you have trouble paying y our heating, water, or electric bill? No 01/12/2023 Is your family able to pay t he heat, water, or electric bill? (Household - for ages 0-17 years) Not on file 01/12/2023 Does your family have access to good internet? (Household - for ages 0-17 years) Not on file 01/12/2023 Employment Status Answer Date Recorded Are you unemployed or without regular income? No 01/12/2023 Does the household have a re gular source of income? (Household - for ages 0-17 years) Not on file 01/12/2023 Social Connections Answer Date Recorded How often do you feel lonely or isolated from those around you? Sometimes 01/12/2023 Financial Resource Strain Answer Date R ecorded Do you have any trouble payi ng for your medications, or do you think you might in the future? No 01/12/2023 Does your family have troubl e paying for medicine? (Household - for ages 0-17 years) Not on file 01/12/2023 Transportation Needs Answer Date Record ed READ ONLY Do you have troubl e getting a ride to medical visits or work? Never True 01/12/2023 Does your family have a hard time getting a ride to doctors visits? (Household - for ages 0-17 years) Not on file 01/12/2023 Has lack of transportation k ept you from medical appointments, meetings, work, or from getting things needed for daily living? Check all that apply. (Adult - for ages 18 years and over) Not on file 01/12/2023 Do you (or your family) have trouble finding or paying for a ride (transportation)? (Household - for ages 0-17 years) Not on file 01/12/2023 Housing Stability Answer Date Recorded Do you currently live in a s helter or have no steady place to sleep at night? No 01/12/2023 READ ONLY Do you think you a re at risk of becoming homeless? No 01/12/2023 Does your family worry about paying for your home or becoming homeless? (Household - for ages 0-17 years) Not on file 0 01/12/2023 Are you homeless or worried that you might be in the future? (Adult - for ages 18 years and over) Not on file Are you (or your family) anand eless or worried that you might be in the future? (Household - for ages 0-17 years) Not on file Food Insecurity Answer Date Recorded Do you need food for this week? No 01/12/2023 Are you able to get enough f ood for your family? (Household - for ages 0-17 years) Not on file 01/12/2023 Does your family need food t his week? (Household - for ages 0-17 years) Not on file 01/12/2023 Do you always have enough fo od for your family? (Household - for ages 0-17 years) Not on file 01/12/2023 Sex and Gender Information Value Date Recorded Sex Assigned at Male 01/05/2023 10:45 AM EDT Gender Identity Female 01/05/2023 10:45 AM EDT Sexual Orientation Lesbian 01/05/2023 10 :45 AM EDT Job Start Date Occupation Industry Not on file Not on file Not on file documented as of this encounter Miscellaneous Notes * Telephone Encounter - Hollis John MD - 10/31/2023 2:09 PM EDT Signed Prescriptions: Disp Refills Progesterone 200 MG Oral Capsule (Prometri*90 Cap*1 Sig: Take 1 Capsule by mouth every night at bedtime.Authorizing Provider: HOLLIS JOHN * Telephone Encounter - Lindsey Dennison LPN - 10/31/2023 11:16 AM EDTPending Prescriptions: Disp Refills Progesterone 200 MG Oral Capsule (Prometri*90 Cap*1 Sig: Take 1 Capsule by mouth every night at bedtime. * Telephone Encounter - Chapis Vega OSA - 10/31/2023 10:36 AM EDT Did you pend patient's preferred pharmacy and medication before forwarding?yes Pharmacy: [id number] Pending Prescriptions: Disp Refills Progesterone 200 MG Oral Capsule (Prometr*90 Cap*1 Sig: Take 1 Capsule by mouth every night at bedtime. Last Visit: 04/14/2023 (in office), Visit date not found (telemedicine) Next Visit: 01/07/2024 If no future appointments scheduled, and last appointment is greater than a year ago, please schedule patient for a follow-up appointment Last date the medication was ordered: 04.14.23 Is this request for a controlled substance?No Urine Drug Screen:No results found for this or any previous visit. Patient Phone Numbers Labs: Lab Results Component Value Date/Time CREAT 0.8 03/02/2023 03:42 PM POTASSIUM 5.0 03/02/2023 03:42 PM TSH 1.87 03/02/2023 03:42 PM LDLCALC 88 03/02/2023 03:42 PM ALT 13 03/02/2023 03:42 PM documented in this encounter Plan of Treatment Upcoming Encounters Date Type Department Care Team (Late st Contact Info) Description 01/07/2024 8:20 AM EDT Office Visit Family Practice [facility] [address] [place] [address] Hollis John MD [address] [place] [phone] Health Maintenance Due Date Last Done Comments HIV Screening 2012 Hepatitis C Screening 2015 Hepatitis B Vaccine (1 of 3 - 19+ 3-dose series) 2016 *SPIROMETRY ONCE FOR ASTHMA-ADULT 02/11/2023 HPV (Gardasil) Vaccine (3 - 3-dose series) 10/14/2023 05/18/2023, 04/14/2023 Influenza Vaccine (FLU shot) (#1) 2023 01/13/2023 Depression Monitoring 01/14/2024 01/13/2023 TSH 03/02/2024 03/02/2023 DTaP,Tdap,and Td Vaccines (2 - Td or Tdap) 12/21/2032 12/21/2022 COVID-19 Vaccine Completed 01/24/2023 Pneumococcal Vaccine: Pediatrics (0 to 5 Years) and At-Risk Patients (6 to 64 Years) Completed 02/16/2023 MENINGOCOCCAL (MENACTRA/MENVEO) Aged Out No longer eligible based on patient's age to complete this topic Pap Smear Discontinued documented as of this encounter Medical Devices Not on filedocumented as of this encounter Visit Diagnoses Diagnosis Gender dysphoria in adult documented in this encounter Care Teams Swine Nutritionist Relationship Specialty Start Date End Date Hollis John MD [address] [place] [id number] PCP - General Internal Medicine 01/13/23 documented as of this encounter
--- OUTSIDE RECORDS SUMMARY | 2023-12-28 04:47 | External Medical Summary | Summary of Care ---
Author Name Unknown Organization [facility] Address [address] [place] [address] Phone [phone] Care Team Providers Care Container Washer Name Role Phone Hollis John MD Primary Care Provider Reason for Visit * Reason Onset Date Comments Medication Refill 10/31/2023 Encounter Details Date Type Department Care Team (Late st Contact Info) Description 10/31/2023 Refill Family Practice [facility] [address] [place] [address] Jesus Carroll MD [address] [facility] [place] [address] Allergies Active Allergy Reactions Criticality Noted Date [...] night at bedtime. 30 Capsule 09/30/2023 Active Spironolactone 50 MG Oral Tablet (Aldactone) Take 1 Tablet by mouth in the morning and 1 Tablet before bedtime. 180 Tablet 1 10/31/2023 Active Spironolactone 50 MG Oral Tablet (Aldactone) Take 1 Tablet by mouth in the morning and 1 Tablet before bedtime. 180 Tablet 1 06/30/2023 Discontinue d(Refill) Hospital, Clinic, or Other Facility [...] Encounter - Hollis John MD - 10/31/2023 2:10 PM EDT Signed Prescriptions: Disp Refills Spironolactone 50 MG Oral Tablet (Aldacton*180 Ta*1 Sig: Take 1 Tablet by mouth in the morning and 1 Tablet before bedtime. Authorizing Provider: HOLLIS JOHN * Telephone Encounter - Lindsey Dennison LPN - 10/31/2023 11:16 AM EDTPending Prescriptions: Disp Refills Spironolactone 50 MG Oral Tablet (Aldacton*180 Ta*1 Sig: Take 1 Tablet by mouth in the morning and 1 Tablet before bedtime. * Telephone Encounter - Chapis Vega OSA - 10/31/2023 11:12 AM EDT Did you pend patient's preferred pharmacy and medication before forwarding?yes Pharmacy: [facility] #[id number] [address] [facility] Pending Prescriptions: Disp Refills Spironolactone 50 MG Oral Tablet (Aldacto*180 Ta*1 Sig: Take 1 Tablet by mouth in the morning and 1 Tablet before bedtime. Last Visit: 04/14/2023 (in office), Visit date not found (telemedicine) Next Visit: 01/07/2024 If no future appointments scheduled, and last appointment is greater than a year ago, please schedule patient for a follow-up appointment Last date the medication was ordered: 06.30.23 Is this request for a controlled substance?No [...] Description 01/07/2024 8:20 AM EDT Office Visit [facility] [address] [address] Hollis John MD [address] [address] Health Maintenance Due Date Last Done Comments [...] Not on filedocumented as of this encounter Care Teams Container Washer Relationship Specialty Start Date End Date Hollis John MD [address] [address] PCP - General Internal Medicine 01/13/23 documented as of this encounter
--- OUTSIDE RECORDS SUMMARY | 2023-12-28 04:47 | External Medical Summary | Summary of Care ---
Author Name Unknown Organization [facility] Address [address] [place] [address] Phone [phone] Care Team Providers Care International Travel Consultant Name Role Phone Hollis John MD Primary Care Provider Reason for Visit * Reason Onset Date Comments Medication Refill 11/01/2023 Encounter Details Date Type Department Care Team (Late st Contact Info) Description 11/01/2023 Refill Family Practice [facility] [address] [place] [address] Jesus Carroll MD [address] [facility] [address] Gender dysphoria in adult Allergies Active Allergy Reactions Criticality Noted Date Comments Cephalosporins Edema face/lips/tongue,Rash High 12/25 documented as of this encounter (statuses as of 11/02/2023) Medications Medication Sig Dispensed Refills Start Date [...] the morning. 90 Tablet 3 05/24/2023 Active Levothyroxine Sodium 50 MCG Oral Tablet [...] the morning. 30 Tablet 1 09/30/2023 Active Escitalopram Oxalate 20 MG Oral Tablet (Lexapro) Take 1 Tablet by mouth in the morning. 90 Tablet 1 10/31/2023 Active Spironolactone 50 MG Oral Tablet (Aldactone) Take 1 Tablet by mouth in the morning and 1 Tablet before bedtime. 180 Tablet 1 11/02/2023 Active Omeprazole 20 MG Oral Capsule Delayed Release (PriLOSEC) Take 1 Capsule by mouth in the morning. 30 Capsule 11/02/2023 Active Progesterone 200 MG Oral Capsule (Prometrium)Indicat ions:Gender dysphoria in adult Take 1 Capsule by mouth every night at bedtime. 90 Capsule 1 11/02/2023 Active Omeprazole 20 MG Oral Capsule Delayed Release (PriLOSEC) Take 1 Capsule by mouth in the morning. 90 Capsule 1 07/26/2023 4 Discontinue d(Medicatio n List Clean Up) Spironolactone 50 MG Oral Tablet (Aldactone) Take 1 Tablet by mouth in the morning and 1 Tablet before bedtime. 60 Tablet 09/30/2023 4 Discontinue d(Refill) Omeprazole 20 MG Oral Capsule Delayed Release (PriLOSEC) Take 1 Capsule by mouth in the morning. 30 Capsule 09/30/2023 4 Discontinue d(Refill) Progesterone 200 MG Oral Capsule (Prometrium)Indicat ions:Gender dysphoria in adult Take 1 Capsule by mouth every night at bedtime. 30 Capsule 09/30/2023 4 Discontinue d(Refill) Progesterone 200 MG Oral Capsule (Prometrium)Indicat ions:Gender dysphoria in adult Take 1 Capsule by mouth every night at bedtime. 90 Capsule 1 10/31/2023 4 Discontinue d(Medicatio n List Clean Up) Spironolactone 50 MG Oral Tablet (Aldactone) Take 1 Tablet by mouth in the morning and 1 Tablet before bedtime. 180 Tablet 1 10/31/2023 4 Discontinue d(Medicatio n List Clean Up) Hospital, Clinic, or Other Facility Administered Medication Ordered Dose Route Frequency Start Date End Date Status Albuterol Sulfate (Proventil) (2.5 MG/3ML) 0.083% inhalation solution 2.5 mgIndications:Tracheobron chomalacia 2.5 mg NEBULIZER Q4H PRN 02/09/2023 Active documented as of this encounter (statuses as of 11/02/2023) Active Problems Problem Noted Date Diagnosed Date [...] as of this encounter (statuses as of 11/02/2023) Immunizations Name Administration Dates Next Due COVID-19, MRNA-LNP, 23-24, P F, 30 MCG/0.3 mL, 12 YRS AND ABOVE, IM ([employer] [place]) 01/24/2023 HPV Vaccine, 9-Valent 05/18/2023,04/14/2023 Pneumococcal Conjugate [...] encounter Miscellaneous Notes * Telephone Encounter - Arti Ricketts RP - 11/02/2023 2:19 PM EDTSigned Prescriptions: Disp Refills Spironolactone 50 MG Oral Tablet (Aldacton*180 Ta*1 Sig: Take 1 Tablet by mouth in the morning and 1 Tablet before bedtime.Authorizing Provider: HOLLIS JOHN User: ARTI RICKETTS Omeprazole 20 MG Oral Capsule Delayed Rele*30 Cap*0 Sig: Take 1 Capsule by mouth in the morning.Authorizing Provider: HOLLIS JOHN User:ARTI RICKETTS Progesterone 200 MG Oral Capsule (Prometri*90 Cap*1 Sig: Take 1 Capsule by mouth every night at bedtime.Authorizing Provider: HOLLIS JOHN User: ARTI RICKETTS * Telephone Encounter - Arti Ricketts RPh - 11/02/2023 2:11 PM EDT Patient is switching pharmacies. Reissued balance of refills on current prescription(s) to [facility]. Thank Arti mishra, PharmD Clinical Pharmacist [facility] ([facility]) [phone] 11/02/2023, 2:19 PM documented in this encounter Plan of Treatment Upcoming Encounters Date Type Department Care Team (Late st Contact Info) Description 01/07/2024 8:20 AM EDT Office Visit Family [facility] [address] [address] Hollis John MD [address] [place] [address] Health Maintenance Due Date Last Done Comments [...] adult documented in this encounter Care Teams International Travel Consultant Relationship Specialty Start Date End Date Hollis John MD [address] [address] PCP - General Internal Medicine 01/13/23 documented as of this encounter
--- OUTSIDE RECORDS SUMMARY | 2023-12-28 04:47 | External Medical Summary ---
Author Name Unknown Address Unknown Organization K01[place] [place] [address] [place] [id number] Laboratory Report Ordering Provider Test Date Status DOGU SHAFER 11/16/2023 14:25:13 Final Follicular Phase: 12.4-233 p g/mL
Ovulation Phase: 41.0-398 pg/mL
Luteal Phase: 22.3-341 pg/mL

Post menopausal: <50 pg/mL

:
1st Trimester: 154-3243 pg/mL
2nd Trimester: 1561-47619 pg/mL
3rd Trimester: >8525 pg/mL Observation Date Value Abnormality Reference (Units ) Status Estradiol 11/16/2023 14:25:13 230.0 (pg/mL) Final The above reference range is based on the legal sex of the patient only. Results should be interpreted together with patient's sex at , gender identity, and clinical context. Performing Location [facility] [place] [address] [place] [address]
--- OUTSIDE RECORDS SUMMARY | 2023-12-28 04:47 | External Medical Summary | Summary of Care ---
Author Name Unknown Organization [facility] Address [address] [place] [address] Phone [phone] Care Team Providers Care First Line Production Supervisor Name Role Phone Hollis John MD Primary Care Provider Reason for Visit * Reason Onset Date Comments Medication Refill 10/31/2023 Encounter Details Date Type Department Care Team (Late st Contact Info) Description 10/31/2023 Refill Family Practice [facility] [address] [place] [address] Jesus Carroll MD [address] [facility] [place] [address] Allergies Active Allergy Reactions Criticality Noted Date [...] night at bedtime. 30 Capsule 09/30/2023 Active Escitalopram Oxalate 20 MG Oral Tablet (Lexapro) Take 1 Tablet by mouth in the morning. 90 Tablet 1 10/31/2023 Active Escitalopram Oxalate 20 MG Oral Tablet [...] 2:09 PM EDT Signed Prescriptions: Disp Refills Escitalopram Oxalate 20 MG Oral Tablet (Le*90 Tab*1 Sig: Take 1 Tablet by mouth in the morning. Authorizing Provider: HOLLIS JOHN * Telephone Encounter - Lindsey Dennison LPN - 10/31/2023 11:16 AM EDTPending Prescriptions: Disp Refills Escitalopram Oxalate 20 MG Oral Tablet (Le*90 Tab*1 Sig: Take 1 Tablet by mouth in the morning. * Telephone Encounter - Chapis Vega OSA - 10/31/2023 11:10 AM EDT Did you pend patient's preferred pharmacy and medication before forwarding?yes Pharmacy: [facility] #[id number] [address] [facility] Pending Prescriptions: Disp Refills Escitalopram Oxalate 20 MG Oral Tablet (L*90 Tab*1 Sig: Take 1 Tablet by mouth in the morning. Last Visit: 04/14/2023 (in office), Visit date [...] 01/07/2024 8:20 AM EDT Office Visit Family [facility] [address] [address] Hollis John MD [address] [address] Health Maintenance Due Date Last Done Comments [...] filedocumented as of this encounter Care Teams First Line Production Supervisor Relationship Specialty Start Date End Date Hollis John MD [address] [address] PCP - General Internal Medicine 01/13/23 documented as of this encounter
--- OUTSIDE RECORDS SUMMARY | 2023-12-28 04:47 | External Medical Summary | Summary of Care ---
Author Name Unknown Organization [facility] Address [address] [place] [address] Phone [phone] Care Team Providers Care Data Keyer Name Role Phone Hollis John MD Primary Care Provider Reason for Visit * Reason Onset Date Comments Medication Refill 11/20/2023 Encounter Details Date Type Department Care Team (Late st Contact Info) Description 11/20/2023 Refill Family Practice [facility] [address] [facility] [place] [address] Jesus Carroll MD [address] [place] [id number] Gender dysphoria in adult Allergies Active Allergy Reactions Criticality Noted Date Comments Cephalosporins Edema face/lips/tongue,Rash High 12/25 documented as of this encounter (statuses as of 11/21/2023) Medications Medication Sig Dispensed Refills Start Date [...] EMPTY STOMACH 90 Tablet 3 08/03/2023 Active Spironolactone 50 MG Oral Tablet (Aldactone) [...] at bedtime. 90 Capsule 1 11/02/2023 Active Escitalopram Oxalate 20 MG Oral Tablet (Lexapro) Take 1 Tablet by mouth in the morning. 90 Tablet 1 11/08/2023 Active Estradiol Valerate 20 MG/ML Intramuscular Oil (Delestrogen)Indica tions:Gender dysphoria in adult Inject 0.35 mL into a large muscle once a week. 5 mL 1 11/21/2023 Active Estradiol Valerate 20 MG/ML Intramuscular Oil (Delestrogen)Indica tions:Gender dysphoria in adult Inject 0.35 mL into a large muscle once a week. 5 mL 1 09/27/2023 4 Discontinue d(Refill) Hospital, Clinic, or Other Facility Administered Medication Ordered Dose Route Frequency Start Date End Date Status Albuterol Sulfate (Proventil) (2.5 MG/3ML) 0.083% inhalation solution 2.5 mgIndications:Tracheobron chomalacia 2.5 mg NEBULIZER Q4H PRN 02/09/2023 Active documented as of this encounter (statuses as of 11/21/2023) Active Problems Problem Noted Date Diagnosed Date [...] as of this encounter (statuses as of 11/21/2023) Immunizations Name Administration Dates Next Due COVID-19, [...] No 01/12/2023 Does the household have a [place] source of income? (Household - for ages [...] Telephone Encounter - Hollis John MD - 11/21/2023 11:41 AM EDT Signed Prescriptions: Disp Refills Estradiol Valerate 20 MG/ML Intramuscular *5 mL 1 Sig: Inject 0.35 mL into a large muscle once a week. Authorizing Provider: HOLLIS JOHN * Telephone Encounter - Blanca Merino LPN - 11/21/2023 8:31 AM EDTPending Prescriptions: Disp Refills Estradiol Valerate 20 MG/ML Intramuscular *5 mL 1 Sig: Inject 0.35 mL into a large muscle once a week. * Telephone Encounter - Blanca Merino LPN - 11/21/2023 8:31 AM EDT Did you pend patient's preferred pharmacy and medication before forwarding?yes Pharmacy: [facility] Pending Prescriptions: Disp Refills Estradiol Valerate 20 MG/ML Intramuscular*5 mL 1 Sig: Inject 0.35 mL into a large muscle once a week. Last Visit: 04/14/2023 (in office), Visit date not found (telemedicine) Next Visit: 01/07/2024 If no future appointments scheduled, and last appointment is greater than a year ago, please schedule patient for a follow-up appointment Last date the medication was ordered: 09/27/23 Is this request for a controlled substance? Urine Drug Screen:No results found for this or any previous visit. Patient Phone Numbers Labs: Lab Results Component Value Date/Time CREAT 0.8 03/02/2023 03:42 PM POTASSIUM 5.0 03/02/2023 03:42 PM TSH 1.87 03/02/2023 03:42 PM LDLCALC 88 03/02/2023 03:42 PM ALT 13 03/02/2023 03:42 PM * Telephone Encounter - Mare Fountain - 11/21/2023 6:20 AM EDTPending Prescriptions: Disp Refills Estradiol Valerate 20 MG/ML Intramuscular *5 mL 1 Sig: Inject 0.35 mL into a large muscle once a week. documented in this encounter Plan of Treatment Upcoming Encounters Date Type Department Care Team (Late st Contact Info) Description 01/07/2024 8:20 AM EDT Office Visit Family Practice [facility] [address] [address] Hollis John MD [address] [address] Health Maintenance Due Date Last Done Comments [...] adult documented in this encounter Care Teams Data Keyer Relationship Specialty Start Date End Date Hollis John MD [address] [address] PCP - General Internal Medicine 01/13/23 documented as of this encounter
--- OUTSIDE RECORDS SUMMARY | 2023-12-28 04:47 | External Medical Summary ---
Author Name Unknown Address Unknown Organization K01:[facility] [place] [address] [address] Laboratory Report Ordering Provider Test Date Status HOLLISDOUG 11/16/2023 14:25:13 Final The above reference range is based on the legal sex of the patient only. Results should be interpreted together with patient's sex at , gender identity, and clinical context. Observation Date Value Abnormality Reference (Units ) Status Testosterone [Mass/volume] in Serum or Plasma 11/16/2023 14:25:13 16.5 2.9-48.0 (ng/dL) Final Performing Location [facility] [place] [address] [place] [address]
--- OUTSIDE RECORDS SUMMARY | 2023-12-28 04:47 | External Medical Summary | Summary of Care ---
Author Name Unknown Organization [facility] Address [address] [place] [address] Phone [phone] Care Team Providers Care Carousel Operator Name Role Phone Hollis John MD Primary Care Provider Reason for Visit * Reason Comments Medication Refill Encounter Details Date Type Department Care Team (Late st Contact Info) Description 12/02/2023 Refill Family Practice [facility] [address] [place] [address] Hollis John MD [address] [place] [address] Allergies Active Allergy Reactions Criticality Noted Date Comments Cephalosporins Edema face/lips/tongue,Rash High 12/25 documented as of this encounter (statuses as of 12/05/2023) Medications Medication Sig Dispensed Refills Start Date [...] before bedtime. 180 Tablet 1 11/02/2023 Active Progesterone 200 MG Oral Capsule [...] a week. 5 mL 1 11/21/2023 Active Omeprazole 20 MG Oral Capsule Delayed Release (PriLOSEC) Take 1 Capsule by mouth in the morning. 90 Capsule 1 12/05/2023 Active Omeprazole 20 MG Oral Capsule Delayed Release (PriLOSEC) Take 1 Capsule by mouth in the morning. 30 Capsule 11/02/2023 4 Discontinue d(Refill) Hospital, Clinic, or Other Facility Administered Medication Ordered Dose Route Frequency Start Date End Date Status Albuterol Sulfate (Proventil) (2.5 MG/3ML) 0.083% inhalation solution 2.5 mgIndications:Tracheobron chomalacia 2.5 mg NEBULIZER Q4H PRN 02/09/2023 Active documented as of this encounter (statuses as of 12/05/2023) Active Problems Problem Noted Date Diagnosed Date Recurrent major depressive disorder 04/14/2023 Scrotal mass 04/14/2023 Mild persistent asthma with exacerbation 023 Environmental allergies 02/09/2023 Migraine headache with aura 01/13/2023 Overview: 2001 Recurrent sinus infections 01/13/2023 Major depressive disorder 01/13/2023 Insomnia 01/13/2023 Hypothyroidism 04/25/2015 Acid reflux 04/25/2015 Overview: pH meter for diagnosis 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 (Household - for ages [...] encounter Miscellaneous Notes * Telephone Encounter - Quan Charles RP - 12/05/2023 10:45 AM EDT Signed Prescriptions: Disp Refills Omeprazole 20 MG Oral Capsule Delayed Rele*90 Cap*1 Sig: Take 1 Capsule by mouth in the morning.Authorizing Provider: HOLLIS JOHN User: QUAN CHARLES documented in this encounter Plan of Treatment Upcoming Encounters Date Type Department Care Team (Late st Contact Info) Description 01/07/2024 8:20 AM EDT Office Visit [facility] [address] [address] Hollis John MD [address] [address] Health Maintenance Due Date Last Done Comments [...] filedocumented as of this encounter Care Teams Carousel Operator Relationship Specialty Start Date End Date Hollis John MD [address] [address] PCP - General Internal Medicine 01/13/23 documented as of this encounter
--- OUTSIDE RECORDS SUMMARY | 2023-12-28 04:47 | External Medical Summary | Summary of Care ---
Author Name Unknown Organization [facility] Address [address] [place] [address] Phone [phone] Care Team Providers Care Wood Caulker Name Role Phone Hollis John MD Primary Care Provider Reason for Visit * Reason Onset Date Comments Medication Refill 11/07/2023 Encounter Details Date Type Department Care Team (Late st Contact Info) Description 11/07/2023 Refill Family Practice [facility] [address] [place] [address] Jesus Carroll MD [address] [place] [address] Allergies Active Allergy Reactions Criticality Noted Date Comments Cephalosporins Edema face/lips/tongue,Rash High 12/25 documented as of this encounter (statuses as of 11/08/2023) Medications Medication Sig Dispensed Refills Start Date [...] a week. 5 mL 1 09/27/2023 Active Spironolactone 50 MG Oral Tablet (Aldactone) [...] the morning. 90 Tablet 1 11/08/2023 Active Escitalopram Oxalate 20 MG Oral Tablet (Lexapro) Take 1 Tablet by mouth in the morning. 30 Tablet 1 09/30/2023 4 Discontinue d(Refill) Escitalopram Oxalate 20 MG Oral Tablet (Lexapro) Take 1 Tablet by mouth in the morning. 90 Tablet 1 10/31/2023 4 Discontinue d(Transferr ed) Hospital, Clinic, or Other Facility Administered Medication Ordered Dose Route Frequency Start Date End Date Status Albuterol Sulfate (Proventil) (2.5 MG/3ML) 0.083% inhalation solution 2.5 mgIndications:Tracheobron chomalacia 2.5 mg NEBULIZER Q4H PRN 02/09/2023 Active documented as of this encounter (statuses as of 11/08/2023) Active Problems Problem Noted Date Diagnosed Date [...] as of this encounter (statuses as of 11/08/2023) Immunizations Name Administration Dates Next Due COVID-19, [...] 01/12/2023 Does the household have a re lar source of income? (Household - for ages [...] encounter Miscellaneous Notes * Telephone Encounter - Dominga Glasgow [facility] - 11/08/2023 7:06 PM EDT Signed Prescriptions: Disp Refills Escitalopram Oxalate 20 MG Oral Tablet (Le*90 Tab*1 Sig: Take 1 Tablet by mouth in the morning.Authorizing Provider: HOLLIS JOHN User: DOMINGA GLASGOW * Telephone Encounter - Dominga Glasgow RPh - 11/08/2023 7:05 PM EDT Rerouted remaining refills to new pharmacy as requested. Thank you, Dominga Glasgow, PharmD Clinical Pharmacist [facility] (formally Telepharmacy) [phone] 11/08/2023 7:05 PM documented in this encounter Plan of Treatment Upcoming Encounters Date Type Department Care Team (Late st Contact Info) Description 01/07/2024 8:20 AM EDT Office Visit Family [facility] [address] [place] [address] Hollis John MD [address] [place] [address] Health Maintenance Due Date Last Done Comments [...] filedocumented as of this encounter Care Teams Wood Caulker Relationship Specialty Start Date End Date Hollis John MD [address] [address] PCP - General Internal Medicine 01/13/23 documented as of this encounter
--- OUTSIDE RECORDS SUMMARY | 2023-12-28 04:47 | External Medical Summary | Summary of Care ---
Author Name Unknown Organization [facility] Address [address] [place] [address] Phone [phone] Care Team Providers Care Desktop Support Engineer Name Role Phone Melanie John MD Primary Care Provider Reason for Visit * Reason Onset Date Comments Med Request 09/30/2023 Encounter Details Date Type Department Care Team (Late st Contact Info) Description 09/30/2023 Telephone Family Practice [facility] [address] [place] [address] Melanie John MD [address] [place] [address] Med Request Allergies Active Allergy Reactions Criticality Noted Date Comments Cephalosporins Edema face/lips/tongue,Rash High 12/25 documented as of this encounter (statuses as of 09/30/2023) Medications Medication Sig Dispensed Refills Start Date [...] night at bedtime. 90 Capsule 1 04/14/2023 4 Discontinue d(Refill) Escitalopram Oxalate 20 MG Oral Tablet (Lexapro) Take 1 Tablet by mouth in the morning. 90 Tablet 1 06/30/2023 4 Discontinue d(Refill) Spironolactone 50 MG Oral Tablet (Aldactone) Take 1 Tablet by mouth in the morning and 1 Tablet before bedtime. 180 Tablet 1 06/30/2023 4 Discontinue d(Refill) Omeprazole 20 MG Oral Capsule Delayed Release (PriLOSEC) Take 1 Capsule by mouth in the morning. 90 Capsule 1 07/26/2023 Discontinue d(Refill) Hospital, Clinic, or Other Facility Administered Medication Ordered Dose Route Frequency Start Date End Date Status Albuterol Sulfate (Proventil) (2.5 MG/3ML) 0.083% inhalation solution 2.5 mgIndications:Tracheobron chomalacia 2.5 mg NEBULIZER Q4H PRN 02/09/2023 Active documented as of this encounter (statuses as of 09/30/2023) Active Problems Problem Noted Date Diagnosed Date [...] as of this encounter (statuses as of 09/30/2023) Immunizations Name Administration Dates Next Due COVID-19, [...] money to get more. Never true 01/12/2023 Sex and Gender Information Value Date Recorded Sex Assigned at Male 01/05/2023 10:45 AM EDT Gender Identity Female 01/05/2023 10:45 AM EDT Sexual Orientation Lesbian 01/05/2023 10 :45 AM EDT Job Start Date Occupation Industry Not on file Not on file Not on file documented as of this encounter Miscellaneous Notes * Addendum Note - Jesus Pearson MD - 09/30/2023 10:44 PM EDTAddended by: JESUS PEARSON on: 09/30/2023 10:44 PM Modules accepted: Orders * Addendum Note - Belén Jasso LPN - 09/30/2023 4:18 PM EDTAddended by: BELÉN JASSO on: 09/30/2023 04:18 PM Modules accepted: Orders * Telephone Encounter - Evelyn Mercado PHARM Tech - 09/30/2023 11:22 AM EDT Pt calling to request a 30 day supply of Escitalopram, Spironolactone, Omeprazole, Progesterone. Flori be out of town for the next month and forgot to waste picker her refills from her usual pharmacy. Pt asking if they can be sent to E [facility] #[id number] [address] [facility] [place]. Please advise. Thank you, Evelyn Mercado, Director [facility] ([facility]) 09/30/2023,11:25 AM documented in this encounter Plan of Treatment Upcoming Encounters Date Type Department Care Team (Late st Contact Info) Description 10/14/2023 10:00 AM EDT Office Visit Family [facility] [address] [address] Melanie John MD [address] [address] Health Maintenance Due Date Last Done Comments HIV Screening 2012 Hepatitis C Screening 2015 Hepatitis B (1 of 3 - 19+ 3-dose series) 2016 *SPIROMETRY ONCE FOR ASTHMA-ADULT 02/11/2023 GARDASIL-HPV IMMUNIZATION SERIES (3 - 3-dose series) 10/14/2023 05/18/2023, 04/14/2023 TSH 03/02/2024 03/02/2023 DTaP,Tdap,and Td Vaccines (2 - Td or Tdap) 12/21/2032 12/21/2022 Influenza Vaccine (FLU shot) Completed 01/13/2023 COVID-19 Vaccine Completed 01/24/2023 Pneumococcal Vaccine: Pediatrics [...] adult documented in this encounter Care Teams Desktop Support Engineer Relationship Specialty Start Date End Date Melanie John MD [address] [address] PCP - General Internal Medicine 01/13/23 documented as of this encounter
--- OUTSIDE RECORDS SUMMARY | 2023-12-28 04:47 | External Medical Summary | Summary of Care ---
Author Name Unknown Organization [facility] Address [address] [place] [address] Phone [phone] Care Team Providers Care Retail Product Advisor Name Role Phone Melanie John MD Primary Care Provider Reason for Visit * Reason Comments Outpatient Testing Encounter Details Date Type Department Care Team (Late st Contact Info) Description 11/16/2023 2:20 PM EDT Laboratory Laboratory [facility] [address] [place] [id number] [place] [address] [place] [address] Gender dysphoria in adult Allergies Active Allergy Reactions Criticality Noted Date Comments Cephalosporins Edema face/lips/tongue,Rash High 12/25 documented as of this encounter (statuses as of 11/16/2023) Medications Medication Sig Dispensed Refills Start Date End Date Status Albuterol Sulfate (5 MG/ML) 0.5% Inhalation Nebulization Solution (Proventil) Inhale via nebulizer every 6 hours as needed for Wheezing. Active Lidocaine HCl 1 % Injection Solution Use as directed in nebulizer for asthma/tracheomal florin. 01/17/2023 Active BD Disp Needle 23G X 1"Indications:Gender dysphoria in adult USE DIRECTED WITH INJECTIONS 100 Each 1 01/25/2023 Active BD Hypodermic Needle 18G X 1"Indications:Gender dysphoria in adult USE DIRECTED WITH INJECTIONS 100 Each 1 01/25/2023 Active BD Plastipak Syringe 3 MLIndications:Gender dysphoria in adult USE DIRECTED WITH INJECTIONS 200 Each 01/25/2023 Active Triamcinolone Acetonide 0.5 % External Cream (Aristocort)Indicati ons:Intrinsic eczema Apply topically to affected area 2 times a day. To affected area. 60 g 5 05/24/2023 Active Cetirizine HCl 10 MG Oral Tablet (ZyrTEC)Indications: Intrinsic eczema Take 1 Tablet by mouth in the morning. 90 Tablet 3 05/24/2023 Active Levothyroxine Sodium 50 MCG Oral Tablet (Levoxyl) TAKE 1 TABLET BY MOUTH ONCE DAILY IN THE MORNING ON AN EMPTY STOMACH 90 Tablet 3 08/03/2023 Active Estradiol Valerate 20 MG/ML Intramuscular Oil (Delestrogen)Indicat ions:Gender dysphoria in adult Inject 0.35 mL into [...] 11/02/2023 Active Progesterone 200 MG Oral Capsule (Prometrium)Indicati ons:Gender dysphoria in adult Take 1 Capsule by mouth every night at bedtime. 90 Capsule 1 11/02/2023 Active Escitalopram Oxalate 20 MG Oral Tablet (Lexapro) Take 1 Tablet by mouth in the morning. 90 Tablet 1 11/08/2023 Active Hospital, Clinic, or Other Facility Administered Medication Ordered Dose Route Frequency Start Date End Date Status Albuterol Sulfate (Proventil) (2.5 MG/3ML) 0.083% inhalation solution 2.5 mgIndications:Tracheobron chomalacia 2.5 mg NEBULIZER Q4H PRN 02/09/2023 Active documented as of this encounter (statuses as of 11/16/2023) Active Problems Problem Noted Date Diagnosed Date [...] as of this encounter (statuses as of 11/16/2023) Immunizations Name Administration Dates Next Due COVID-19, [...] on file documented as of this encounter Plan of Treatment Upcoming Encounters Date Type Department Care Team (Late st Contact Info) Description 01/07/2024 8:20 AM EDT Office Visit Family Practice [facility] [address] [address] Melanie John MD [address] [address] Pending Results Name Type Priority Associated Diagnoses Date /Time TESTOSTERONE, TOTAL Lab Routine Gender dysphoria in adult 11/16/2023 2:25 PM EDT ESTRADIOL Lab Routine Gender dysphoria in adult 11/16/2023 2:25 PM EDT Health Maintenance Due Date Last Done Comments [...] adult documented in this encounter Care Teams Retail Product Advisor Relationship Specialty Start Date End Date Melanie John MD [address] [facility] [address] [place] [address] PCP - General Internal Medicine 01/13/23 documented as of this encounter
--- OUTSIDE RECORDS SUMMARY | 2023-12-28 04:48 | External Medical Summary | Summary of Care ---
Author Name Unknown Organization [facility] Address [address] [place] [address] Phone [phone] Care Team Providers Care Advice Nurse Name Role Phone Melanie John MD Primary Care Provider Reason for Visit * Reason Comments Medication Refill Encounter Details Date Type Department Care Team (Late st Contact Info) Description 07/28/2023 Refill Family Practice [facility] [address] [place] [address] Melanie John MD [address] [place] [address] Gender dysphoria in adult Allergies Active Allergy Reactions Criticality Noted Date Comments Cephalosporins Edema face/lips/tongue,Rash High 12/25 documented as of this encounter (statuses as of 08/01/2023) Medications Medication Sig Dispensed Refills Start Date End Date Status Levothyroxine Sodium 50 MCG Oral Tablet (Levoxyl) TAKE 1 TABLET BY MOUTH ONCE DAILY IN THE MORNING ON AN EMPTY STOMACH 0 12/24/2022 Active Albuterol Sulfate (5 MG/ML) 0.5% Inhalation Nebulization Solution (Proventil) Inhale via nebulizer every 6 hours as needed for Wheezing. 0 Active Lidocaine HCl 1 % Injection Solution Use as directed in nebulizer for asthma/tracheom alasia. 0 01/17/2023 Active BD Disp Needle 23G X 1"Indications:Gende r dysphoria in adult USE DIRECTED WITH INJECTIONS 100 Each 1 01/25/2023 Active BD Hypodermic Needle 18G X 1"Indications:Gende r dysphoria in adult USE DIRECTED WITH INJECTIONS 100 Each 1 01/25/2023 Active BD Plastipak Syringe 3 MLIndications:Gende r dysphoria in adult USE DIRECTED WITH INJECTIONS 200 Each 0 01/25/2023 Active Progesterone 200 MG Oral Capsule (Prometrium)Indicat ions:Gender dysphoria in adult Take 1 Capsule by mouth every night at bedtime. 90 Capsule 1 04/14/2023 Active Triamcinolone Acetonide 0.5 % External Cream (Aristocort)Indicat ions:Intrinsic eczema Apply topically to affected area 2 times a day. To affected area. 60 g 5 05/24/2023 Active Cetirizine HCl 10 MG Oral Tablet (ZyrTEC)Indications :Intrinsic eczema Take 1 Tablet by mouth in the morning. 90 Tablet 3 05/24/2023 Active Escitalopram Oxalate 20 MG Oral Tablet (Lexapro) Take 1 Tablet by mouth in the morning. 90 Tablet 1 06/30/2023 Active Spironolactone 50 MG Oral Tablet (Aldactone) Take 1 Tablet by mouth in the morning and 1 Tablet before bedtime. 180 Tablet 1 06/30/2023 Active Omeprazole 20 MG Oral Capsule Delayed Release (PriLOSEC) Take 1 Capsule by mouth in the morning. 90 Capsule 1 07/26/2023 Active Estradiol Valerate 20 MG/ML Intramuscular Oil (Delestrogen)Indica tions:Gender dysphoria in adult Inject 0.35 mL into a large muscle once a week. 5 mL 1 08/01/2023 Active Estradiol Valerate 20 MG/ML Intramuscular Oil (Delestrogen)Indica tions:Gender dysphoria in adult Inject 0.35 mL into a large muscle once a week. 5 mL 1 06/04/2023 Discontinue d(Refill) Hospital, Clinic, or Other Facility Administered Medication Ordered Dose Route Frequency Start Date End Date Status Albuterol Sulfate (Proventil) (2.5 MG/3ML) 0.083% inhalation solution 2.5 mgIndications:Tracheobron chomalacia 2.5 mg NEBULIZER Q4H PRN 02/09/2023 Active documented as of this encounter (statuses as of 08/01/2023) Active Problems Problem Noted Date Diagnosed Date [...] as of this encounter (statuses as of 08/01/2023) Immunizations Name Administration Dates Next Due COVID-19, [...] encounter Miscellaneous Notes * Telephone Encounter - Damon Pulido DO - 08/01/2023 11:57 AM EDTSigned Prescriptions: Disp Refills Estradiol Valerate 20 MG/ML Intramuscular *5 mL 1 Sig: Inject 0.35 mL into a large muscle once a week. Authorizing Provider: DAMON PULIDO * Telephone Encounter - Evelyn Kumar MED ASSIST - 07/29/2023 12:32 PM EDT Pending Prescriptions: Disp Refills Estradiol Valerate 20 MG/ML Intramuscular *5 mL 1 Sig: Inject 0.35 mL into a large muscle once a week. * Telephone Encounter - Evelyn Kumar MED ASSIST - 07/29/2023 12:32 PM EDT Did you pend patient's preferred pharmacy and medication before forwarding?yes Pharmacy: [facility] Pending Prescriptions: Disp Refills Estradiol Valerate 20 MG/ML Intramuscular*5 mL 1 Sig: Inject 0.35 mL into a large muscle once a week. Last Visit: 04/14/2023 (in office), Visit date not found (telemedicine) Next Visit: 10/14/2023 If no future appointments scheduled, and last appointment is greater than a year ago, please schedule patient for a follow-up appointment Last date the medication was ordered: 06/04/2023 Is this request for a controlled substance?No Urine Drug Screen:No results found for this or any previous visit. Patient Phone Numbers Labs: Lab Results Component Value Date/Time CREAT 0.8 03/02/2023 03:42 PM POTASSIUM 5.0 03/02/2023 03:42 PM TSH 1.87 03/02/2023 03:42 PM LDLCALC 88 03/02/2023 03:42 PM ALT 13 03/02/2023 03:42 PM * Telephone Encounter - Mare Fountain - 07/29/2023 12:07 PM EDTPending Prescriptions: Disp Refills Estradiol Valerate 20 MG/ML Intramuscular *5 mL 1 Sig: Inject 0.35 mL into a large muscle once a week. documented in this encounter Plan of Treatment Upcoming Encounters Date Type Department Care Team (Late st Contact Info) Description 08/25/2023 11:00 AM EDT PulmDiagnostic Pulmonary Function Lab, [facility] [address] [address] [place], [place] [address] [address] 10/14/2023 10:00 AM EDT Office Visit Family Practice [facility] [address] [address] Melanie John MD [address] [address] Health Maintenance Due Date Last Done Comments [...] adult documented in this encounter Care Teams Advice Nurse Relationship Specialty Start Date End Date Melanie John MD [address] [place] [address] PCP - General Internal Medicine 01/13/23 documented as of this encounter
--- OUTSIDE RECORDS SUMMARY | 2023-12-28 04:48 | External Medical Summary | Summary of Care ---
Author Name Unknown Organization [facility] Address [address] [place] [address] Phone [phone] Care Team Providers Care Cosmetics Machine Operator Name Role Phone Melanie John MD Primary Care Provider Reason for Visit * Reason Onset Date Comments Med Request 09/30/2023 Encounter Details Date Type Department Care Team (Late st Contact Info) Description 09/30/2023 Telephone Family Practice [facility] [address] [place] [address] Melanie John MD [address] [place] [address] Med Request Allergies Active Allergy Reactions Criticality [...] DIRECTED WITH INJECTIONS 200 Each 01/25/2023 Active Progesterone 200 MG Oral Capsule (Prometrium)Indicati [...] a week. 5 mL 1 09/27/2023 Active Hospital, Clinic, or Other Facility Administered [...] encounter Miscellaneous Notes * Addendum Note - Belén Jasso LPN - 09/30/2023 4:18 PM EDTAddended by: BELÉN JASSO on: 09/30/2023 04:18 PM Modules accepted: Orders * Telephone Encounter - Evelyn Mercado PHARM Tech - 09/30/2023 11:22 AM EDT Pt calling to request a 30 day supply of Escitalopram, Spironolactone, Omeprazole, Progesterone. Alexxwimagdalena be out of town for the next month and forgot to sweet pickled fruit maker her refills from her usual pharmacy. Pt asking if they can be sent to E [facility] #[id number] [address] [facility]. Please advise. Thank you, Evelyn Mercado, Broiler Chef Or Cook [facility] ([facility]) 09/30/2023,11:25 AM documented in this encounter Plan of Treatment Upcoming Encounters Date Type Department Care Team (Late st Contact Info) Description 10/14/2023 10:00 AM EDT Office Visit Family Practice [facility] [address] [place] [address] Melanie John MD [address] [place] [address] Health Maintenance Due Date Last Done Comments [...] adult documented in this encounter Care Teams Cosmetics Machine Operator Relationship Specialty Start Date End Date Melanie John MD [address] [place] [address] PCP - General Internal Medicine 01/13/23 documented as of this encounter
--- OUTSIDE RECORDS SUMMARY | 2023-12-28 04:48 | External Medical Summary | Summary of Care ---
Author Name Unknown Organization [facility] Address [address] [place] [address] Phone [phone] Care Team Providers Care Paperhanger Apprentice Name Role Phone Melanie John MD Primary Care Provider Reason for Visit * Reason Comments Medication Refill Encounter Details Date Type Department Care Team (Late st Contact Info) Description 09/27/2023 Refill Family Practice [facility] [address] [place] [address] [place], [address] [place] [address] Gender dysphoria in adult Allergies Active Allergy Reactions Criticality Noted Date Comments Cephalosporins Edema face/lips/tongue,Rash High 12/25 documented as of this encounter (statuses as of 09/27/2023) Medications Medication Sig Dispensed Refills Start Date [...] a week. 5 mL 1 09/27/2023 Active Estradiol Valerate 20 MG/ML Intramuscular Oil (Delestrogen)Indica tions:Gender dysphoria in adult Inject 0.35 mL into a large muscle once a week. 5 mL 1 08/01/2023 4 Discontinue d(Refill) Hospital, Clinic, or Other Facility Administered Medication Ordered Dose Route Frequency Start Date End Date Status Albuterol Sulfate (Proventil) (2.5 MG/3ML) 0.083% inhalation solution 2.5 mgIndications:Tracheobron chomalacia 2.5 mg NEBULIZER Q4H PRN 02/09/2023 Active documented as of this encounter (statuses as of 09/27/2023) Active Problems Problem Noted Date Diagnosed Date [...] as of this encounter (statuses as of 09/27/2023) Immunizations Name Administration Dates Next Due COVID-19, [...] encounter Miscellaneous Notes * Telephone Encounter - Jesus Pearson MD - 09/27/2023 9:52 PM EDTSigned Prescriptions: Disp Refills Estradiol Valerate 20 MG/ML Intramuscular *5 mL 1 Sig: Inject 0.35 mL into a large muscle once a week. Authorizing Provider: JESUS PEARSON * Telephone Encounter - Jesus Pearson MD - 09/27/2023 9:52 PM EDTSigned Prescriptions: Disp Refills Estradiol Valerate 20 MG/ML Intramuscular *5 mL 1 Sig: Inject 0.35 mL into a large muscle once a week. Authorizing Provider: JESUS PEARSON * Telephone Encounter - Lindsey Dennison LPN - 09/27/2023 4:31 PM EDTPending Prescriptions: Disp Refills Estradiol Valerate 20 MG/ML Intramuscular *5 mL 1 Sig: Inject 0.35 mL into a large muscle once a week. * Telephone Encounter - Lindsey Dennison LPN - 09/27/2023 4:31 PM EDTPending Prescriptions: Disp Refills Estradiol Valerate 20 MG/ML Intramuscular *5 mL 1 Sig: Inject 0.35 mL into a large muscle once a week. * Telephone Encounter - Mare Fountain - 09/27/2023 4:19 PM EDTPending Prescriptions: Disp Refills Estradiol Valerate 20 MG/ML Intramuscular *5 mL 1 Sig: Inject 0.35 mL into a large muscle once a week. * Telephone Encounter - Evelyn Mercado PHARM Tech - 09/27/2023 3:56 PM EDT Pt is leaving for vacation this Tuesday and will be away for 1 month. Pt will run out of her Estradiol Valerate 20 MG/ML Intramuscular Oil while she is away. Pt is asking if a prescription could be sent to [id number] [address] [facility] for a months worth of the medication. Please advise. Thank you, Evelyn Mercado, Goggles Assembler [facility] ([facility]) (Formerly Telepharmacy) 09/27/2023,4:00 PM documented in this encounter Plan of Treatment Upcoming Encounters Date Type Department Care Team (Late st Contact Info) Description 10/14/2023 10:00 AM EDT Office Visit Family Practice [facility] [address] [address] Melanie John MD [address] [address] Health Maintenance Due Date Last Done Comments [...] adult documented in this encounter Care Teams Paperhanger Apprentice Relationship Specialty Start Date End Date Melanie John MD [address] [address] PCP - General Internal Medicine 01/13/23 documented as of this encounter
--- OUTSIDE RECORDS SUMMARY | 2023-12-28 04:48 | External Medical Summary | Summary of Care ---
Author Name Unknown Organization [facility] Address [address] [place] [address] Phone [phone] Care Team Providers Care Pattern Stamper Name Role Phone Melanie John MD Primary Care Provider Reason for Visit * Reason Onset Date Comments Med Request 09/30/2023 Encounter Details Date Type Department Care Team (Late st Contact Info) Description 09/30/2023 Telephone Family Practice [facility] [address] [place] [address] Melanie John MD [address] [place] [address] Med Request Allergies Active Allergy Reactions Criticality [...] encounter Miscellaneous Notes * Telephone Encounter - Evelyn Mercado PHARM Tech - 09/30/2023 11:22 AM EDT Pt calling to request a 30 day supply of Escitalopram, Spironolactone, Omeprazole, Progesterone. Flori be out of town for the next month and forgot to excelsior picker her refills from her usual pharmacy. Pt asking if they can be sent to E [facility] #[id number] [address] [facility]. Please advise. Thank you, Evelyn Mercado, Ring Sewer [facility] ([facility]) 09/30/2023,11:25 AM documented in this encounter Plan of Treatment Upcoming Encounters Date Type Department Care Team (Late st Contact Info) Description 10/14/2023 10:00 AM EDT Office Visit Family [facility] [address] [facility] [place] [address] Melanie John MD [address] [facility] [place] [address] Health Maintenance Due Date Last Done Comments [...] filedocumented as of this encounter Care Teams Pattern Stamper Relationship Specialty Start Date End Date Melanie John MD [address] [address] PCP - General Internal Medicine 01/13/23 documented as of this encounter
--- OUTSIDE RECORDS SUMMARY | 2023-12-28 04:48 | External Medical Summary | Summary of Care ---
Author Name Unknown Organization [facility] Address [address] [place] [address] Phone [phone] Care Team Providers Care Double Back Operator Name Role Phone Melanie John MD Primary Care Provider Reason for Visit * Reason Onset Date Comments Med Request 07/25/2023 Encounter Details Date Type Department Care Team (Late st Contact Info) Description 07/25/2023 Telephone Family Practice [facility] [address] [place] [address] Melanie John MD [address] [place] [address] Med Request Allergies Active Allergy Reactions Criticality Noted Date Comments Cephalosporins Edema face/lips/tongue,Rash High 12/25 documented as of this encounter (statuses as of 07/25/2023) Medications Medication Sig Dispensed Refills Start Date End Date Status Levothyroxine Sodium 50 MCG Oral Tablet (Levoxyl) TAKE 1 TABLET BY MOUTH ONCE DAILY IN THE MORNING ON AN EMPTY STOMACH 0 12/24/2022 Active Omeprazole 20 MG Oral Capsule Delayed Release (PriLOSEC) Take 1 Capsule by mouth in the morning. 0 10/13/2022 Active Albuterol Sulfate (5 MG/ML) 0.5% Inhalation Nebulization Solution (Proventil) Inhale via nebulizer every 6 hours as needed for Wheezing. 0 Active Lidocaine HCl 1 % Injection Solution Use as directed in nebulizer for asthma/tracheomal florin. 0 01/17/2023 Active BD Disp Needle 23G [...] the morning. 90 Tablet 3 05/24/2023 Active Estradiol Valerate 20 MG/ML Intramuscular Oil (Delestrogen)Indicat ions:Gender dysphoria in adult Inject 0.35 mL into a large muscle once a week. 5 mL 1 06/04/2023 Active Escitalopram Oxalate 20 MG Oral Tablet (Lexapro) Take 1 Tablet by mouth in the morning. 90 Tablet 1 06/30/2023 Active Spironolactone 50 MG Oral Tablet (Aldactone) Take 1 Tablet by mouth in the morning and 1 Tablet before bedtime. 180 Tablet 1 06/30/2023 Active Hospital, Clinic, or Other Facility Administered Medication Ordered Dose Route Frequency Start Date End Date Status Albuterol Sulfate (Proventil) (2.5 MG/3ML) 0.083% inhalation solution 2.5 mgIndications:Tracheobron chomalacia 2.5 mg NEBULIZER Q4H PRN 02/09/2023 Active documented as of this encounter (statuses as of 07/25/2023) Active Problems Problem Noted Date Diagnosed Date [...] as of this encounter (statuses as of 07/25/2023) Immunizations Name Administration Dates Next Due COVID-19, [...] encounter Miscellaneous Notes * Addendum Note - Kaitlynn Ruvalcaba, MED ASSIST - 07/25/2023 11:41 AM EDTAddended by: KAITLYNN RUVALCABA on: 07/25/2023 11:41 AM Modules accepted: Orders * Telephone Encounter - Kaitlynn Ruvalcaba MED ASSIST - 07/25/2023 11:41 AM EDT Pending Prescriptions: Disp Refills Omeprazole 20 MG Oral Capsule Delayed Rel*90 Cap*3 Sig: Take 1 Capsule by mouth in the morning. 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 Recurrent sinus infections J32.9 Hypothyroidism E03.9 Acid reflux K21.9 Major depressive disorder F32.9 Insomnia G47.00 Mild persistent asthma with exacerbation J45.31 Environmental allergies Z91.09 Recurrent major depressive disorder (HCC) F33.9 Scrotal mass N50.89 Labs: Lab Results Component Value Date/Time CREATININE - [facility] 0.8 03/02/2023 03:42 PM Lab Results Component Value Date/Time POTASSIUM - [facility] 5.0 03/02/2023 03:42 PM Lab Results Component Value Date/Time TSH - [facility] 1.87 03/02/2023 03:42 PM Lab Results Component Value Date/Time LDL CHOLESTEROL (CALCULATED) - [facility] 88 03/02/2023 03:42 PM Lab Results Component Value Date/Time ALT - [facility] 13 03/02/2023 03:42 PM Hemoglobin AIC Results: No results found for: "HEMOGLOBIN A1C" * Telephone Encounter - Evelyn Mercado field test engineer - 07/25/2023 11:[address] [facility] calling requesting the following medication below that is listed as "Historical". The following information was provided: Medication Name: Omeprazole Strength: 20mg Directions: 1 cap daily Preferred Quantity: 90 Previous Prescriber: PCP Preferred Pharmacy: [facility] Please review and approve if appropriate. Thank you, Evelyn Mercado, Nurses' Association Counselor [facility] ([facility]) (Formerly Telepharmacy) 07/25/2023,11:07 AM documented in this encounter Plan of Treatment Upcoming Encounters Date Type Department Care Team (Late st Contact Info) Description 08/25/2023 11:00 AM EDT PulmDiagnostic Pulmonary Function Lab, [facility] [address] [address] [address], [address] [place] [address] 10/14/2023 10:00 AM EDT Office Visit Family Practice [facility] [address] [place] [address] Melanie John MD [address] [place] [address] Health Maintenance Due Date Last Done Comments HIV Screening 2012 Hepatitis C Screening 2015 Hepatitis B (1 of 3 - 19+ 3-dose series) 2016 *SPIROMETRY ONCE FOR ASTHMA-ADULT 02/11/2023 GARDASIL-HPV IMMUNIZATION SERIES (3 - 3-dose series) 10/14/2023 05/18/2023, 04/14/2023 Depression Screening 01/14/2024 01/13/2023 TSH 03/02/2024 03/02/2023 DTaP,Tdap,and Td [...] filedocumented as of this encounter Care Teams Double Back Operator Relationship Specialty Start Date End Date Melanie John MD [address] [address] PCP - General Internal Medicine 01/13/23 documented as of this encounter
--- OUTSIDE RECORDS SUMMARY | 2023-12-28 04:48 | External Medical Summary | Summary of Care ---
Author Name Unknown Organization [facility] Address [address] [place] [address] Phone [phone] Care Team Providers Care Industrial Painter Name Role Phone Melanie John MD Primary Care Provider Reason for Visit * Reason Onset Date Comments Other 05/23/2023 Encounter Details Date Type Department Care Team (Late st Contact Info) Description 05/23/2023 Telephone [facility] [place] [address] [place] [address] Stacy Leary PsyD [address] [place] [address] Other (/) Allergies Active Allergy Reactions Criticality Noted Date Comments Cephalosporins Edema face/lips/tongue,Rash High 12/25 documented as of this encounter (statuses as of 08/22/2023) Medications Medication Sig Dispensed Refills Start Date [...] at bedtime. 90 Capsule 1 04/14/2023 Active Hospital, Clinic, or Other Facility Administered Medication Ordered Dose Route Frequency Start Date End Date Status Albuterol Sulfate (Proventil) (2.5 MG/3ML) 0.083% inhalation solution 2.5 mgIndications:Tracheobron chomalacia 2.5 mg NEBULIZER Q4H PRN 02/09/2023 Active documented as of this encounter (statuses as of 08/22/2023) Active Problems Problem Noted Date Diagnosed Date [...] as of this encounter (statuses as of 08/22/2023) Immunizations Name Administration Dates Next Due COVID-19, [...] encounter Miscellaneous Notes * Telephone Encounter - Gema Witt OSA - 05/23/2023 9:35 AM EST Tino called to check status of letter for approval for surgery. Patient stated that she meet withher surgeon and is requesting an approval letter. Please send letter via [employer]. documented in this encounter Plan of Treatment Upcoming Encounters Date Type Department Care Team (Late st Contact Info) Description 08/25/2023 11:00 AM EDT PulmDiagnostic Pulmonary Function Lab, [facility] [address] [address] [address], [address] [address] 10/14/2023 10:00 AM EDT Office Visit Family Practice [facility] [address] [address] Melanie John MD [address] [address] Health Maintenance Due Date Last Done Comments [...] filedocumented as of this encounter Care Teams Industrial Painter Relationship Specialty Start Date End Date Melanie John MD [address] [address] PCP - General Internal Medicine 01/13/23 documented as of this encounter
--- OUTSIDE RECORDS SUMMARY | 2023-12-28 04:48 | External Medical Summary | Summary of Care ---
Author Name Unknown Organization [facility] Address [address] [place] [address] Phone [phone] Care Team Providers Care Vice President Corporate Communications Name Role Phone Melanie John MD Primary Care Provider Reason for Visit * Reason Onset Date Comments Med Request 07/25/2023 Encounter Details Date Type Department Care Team (Late st Contact Info) Description 07/25/2023 Telephone Family Practice [facility] [address] [place] [address] Melanie John MD [address] [place] [address] Med Request Allergies Active Allergy Reactions Criticality [...] Miscellaneous Notes * Telephone Encounter - Evelyn Mercado, event mgr - 07/25/2023 11:06 AM EDT [facility] calling requesting the following medication below that is listed as "Historical". The following information was provided: Medication Name: Omeprazole Strength: 20mg Directions: 1 cap daily Preferred Quantity: 90 Previous Prescriber: PCP Preferred Pharmacy: [facility] Please review and approve if appropriate. Thank you, Evelyn Mercado, Exhaust Machine Operator [facility] ([facility]) (Formerly Telepharmacy) 07/25/2023,11:07 AM documented in this encounter Plan of Treatment Upcoming Encounters Date Type Department Care Team (Late st Contact Info) Description 08/25/2023 11:00 AM EDT PulmDiagnostic Pulmonary Function Lab, [facility] [address] [address] [address], [address] [place] [address] 10/14/2023 10:00 AM EDT Office Visit Family Practice [facility] [address] [place] [address] Melanie John MD [address] [place] [address] Health Maintenance Due Date Last Done Comments [...] filedocumented as of this encounter Care Teams Vice President Corporate Communications Relationship Specialty Start Date End Date Melanie John MD [address] [address] PCP - General Internal Medicine 01/13/23 documented as of this encounter
--- OUTSIDE RECORDS SUMMARY | 2023-12-28 04:48 | External Medical Summary | Summary of Care ---
Author Name Unknown Organization [facility] Address [address] [place] [address] Phone [phone] Care Team Providers Care Casing Running Machine Tender Name Role Phone Hollis John MD Primary Care Provider Reason for Visit * Reason Onset Date Comments Med Request 07/25/2023 Encounter Details Date Type Department Care Team (Late st Contact Info) Description 07/25/[address] [facility] [address] [place] [address] Hollis John MD [address] [place] [address] Med Request Allergies Active Allergy Reactions Criticality Noted Date Comments Cephalosporins Edema face/lips/tongue,Rash High 12/25 documented as of this encounter (statuses as of 07/26/2023) Medications Medication Sig Dispensed Refills Start Date [...] the morning. 90 Capsule 1 07/26/2023 Active Omeprazole 20 MG Oral Capsule Delayed Release (PriLOSEC) Take 1 Capsule by mouth in the morning. 0 10/13/2022 Discontinue d(Refill) Hospital, Clinic, or Other Facility Administered Medication Ordered Dose Route Frequency Start Date End Date Status Albuterol Sulfate (Proventil) (2.5 MG/3ML) 0.083% inhalation solution 2.5 mgIndications:Tracheobron chomalacia 2.5 mg NEBULIZER Q4H PRN 02/09/2023 Active documented as of this encounter (statuses as of 07/26/2023) Active Problems Problem Noted Date Diagnosed Date [...] as of this encounter (statuses as of 07/26/2023) Immunizations Name Administration Dates Next Due COVID-19, [...] encounter Miscellaneous Notes * Addendum Note - Hollis John MD - 07/26/2023 7:42 AM EDTAddended by: HOLLIS JOHN on: 07/26/2023 07:42 AM Modules accepted: Orders * Addendum Note - Kaitlynn Ruvalcaba MED ASSIST - 07/25/2023 11:41 AM EDTAddended [...] A1C" * Telephone Encounter - Evelyn Mercado PHARM Tech - 07/25/2023 11:06 AM EDT [facility] calling requesting the following medication below that is listed as "Historical". The following information was provided: Medication Name: Omeprazole Strength: 20mg Directions: 1 cap daily Preferred Quantity: 90 Previous Prescriber: PCP Preferred Pharmacy: [facility] Please review and approve if appropriate. Thank you, Evelyn Mercado, Plate Mill Hand [facility] ([facility]) (Formerly Telepharmacy) 07/25/2023,11:07 AM documented in this encounter Plan of Treatment Upcoming Encounters Date Type Department Care Team (Late st Contact Info) Description 08/25/2023 11:00 AM EDT PulmDiagnostic Pulmonary Function Lab, [facility] [address] [address] [address], [address] [address] 10/14/2023 10:00 AM EDT Office Visit Family Practice [facility] [address] [address] Hollis John MD [address] [place] [address] Health Maintenance Due Date Last Done Comments [...] filedocumented as of this encounter Care Teams Casing Running Machine Tender Relationship Specialty Start Date End Date Hollis John MD [address] [address] PCP - General Internal Medicine 01/13/23 documented as of this encounter
[2023-12-28 07:27] LABS: Basophils # (auto) 0.07 K/uL (0.00-0.20); Basophils % (auto) 0.6 %; Eosinophils # (auto) 0.32 K/uL (0.00-0.50); Eosinophils % (auto) 2.9 %; Hematocrit (blood only) 39.7 % (42.0-52.0); Immature Granulocytes # (auto) 0.04 K/uL (0.01-0.20); Immature Granulocytes % (auto) 0.4 %; Lymphocytes # (auto) 2.83 K/uL (1.20-3.40); Lymphocytes % (auto) 25.4 %; Mean Corpuscular Hemoglobin 29.4 pg (25.0-34.0); Mean Corpuscular Hgb Conc 32.7 g/dL (32.0-36.0); Mean Corpuscular Volume 89.8 fL (80.0-100.0); Mean Platelet Volume 10.7 fL (9.4-12.4); Monocytes # (auto) 0.56 K/uL (0.11-0.59); Neutrophils # (auto) 7.31 K/uL (1.40-6.50); Neutrophils % (auto) 65.7 %; Platelet Count 276 K/uL (130-400); RDW Coefficient of Variation 13.2 % (11.5-14.5); RDW Standard Deviation 43.7 fL (36.4-46.3); Red Blood Count 4.42 M/uL (4.70-6.10); White Blood Count 11.13 K/ul (4.8-10.8)
[2023-12-28 07:36] LABS: Albumin Level 4.2 gm/dl (3.4-5.0); BUN Creatinine Ratio 11.6 (10-20); Bilirubin Direct 0.3 mg/dl (0-0.2); Bilirubin,Total 0.9 mg/dl (0.2-1.0); Calcium 8.7 mg/dl (8.6-10.3); Creatinine Clr Calc Pharmacy 182.2 ml/min; Est GFR (African American) 138.7 ml/min; Est GFR (Non-African American) 119.7 ml/min; Magnesium 2.2 mg/dl (1.7-2.4); Potassium 4.2 mmol/L (3.5-5.1); Total Protein 6.7 gm/dl (6.0-8.3)
[2023-12-28] MEDS: LEVOTHYROXINE SODIUM 50 MCG TABLET PO SCH (07:38)
[2023-12-28] MEDS: SPIRONOLACTONE 25 MG TAB PO SCH (08:25)
[2023-12-28] MEDS: ESCITALOPRAM OXALATE 20 MG TAB PO SCH (08:26)
[2023-12-28] MEDS: PANTOprazole 40 MG TAB PO SCH (08:26)
[2023-12-28] MEDS: CETIRIZINE HCL 10 MG TABLET PO SCH (08:26)
--- NOTE | 2023-12-28 10:03 | Gastrointestinal Consultation ---
Date of Consultation December 28, 2023 Assessment & Plan (1) Transaminitis: (2) Upper abdominal pain: (3) Nausea & vomiting: Plan Patient is a 28 year old transgender male to female, who presented to the ED with sudden onset of nausea, vomiting, abdominal pain. she had new elevation in LFTs. LFTs were notably unremarkable in February 2023. She has had resolution of her symptoms since admission and her LFTs are trending downward. Suspect that this is something more transient in nature such as a food borne illness or possibly viral. - continue to trend LFTs. - can await the pending acute hepatitis panel results. - she would like to trial advancing diet. okay to start her on clears. Supervising Physician Co-Signing Physician Notes I examined the patient and reviewed patient's chart , laboratory data and imaging studies. I agree with with assessment and plan of care as suggested by advanced practice provider History of Present Illness Reason for Consultation: elevated LFTs. abdominal pain Requesting Physician: Chance Matamoros MD Attending Physician: Tejinder Wall DO History of Present Illness Patient is a 28 year old transgender male to female with a past medical history significant for hypothyroidism, tracheobronchomalacia, recurrent sinus infection, mild persistent asthma, GERD, history of scrotal mass, migraine, depression presented to the ED on 12/26 with complaints of abdominal pain and found to have elevated LFTs. Previously had normal LFTS in 02/2023. Patient states that the day prior to admission, she started to noticed pain in the right upper quadrant of her stomach associated with some nausea and vomiting which prompted her to come to ED. She has not had similar symptoms before. Since coming to the ED, she notes that abdominal pain, nausea, and vomiting has resolved. She does endorse a history of acid reflux, but its controlled as outpatient with a PPI. no nsaid use. normal bowel movements. no melena, no BRBPR. 12/27/23 T bili 2.8, d bili 2, AST 351, ALT 388, alk phos 85, lipase 31. 12/28/23 t bili 0.9, d bili 0.3, AST 197, ALT 341, Alk phos 84. US 12/27/23 Cholelithiasis without sonographic evidence of acute cholecystitis. Hepatomegaly and ill-defined area of heterogeneity within the right hepatic lobe. This is a nonspecific finding. Pre-and postcontrast CT of the abdomen and pelvis may be obtained for further evaluation if clinically warranted. CT 12/27/23 No acute findings in the abdomen or pelvis. Specifically the area of heterogeneity identified within the right hepatic lobe on the prior ultrasound is not seen on this exam. Findings likely represent very mild focal fatty infiltration. Allergies Allergy/AdvReac Type Severity Reaction Status Date / Time Cephalosporins Allergy Severe Hives Verified 12/27/23 22:13 Home Medications Medication Instructions Recorded Confirmed Type cetirizine 10 mg tablet (Zyrtec) 10 mg PO DAILY 12/27/23 12/27/23 History escitalopram oxalate 20 mg tablet 20 mg PO QAM 12/27/23 12/27/23 History estradiol valerate 20 mg/mL See Rx Instructions .Route .COMPLEX 12/27/23 12/27/23 History intramuscular oil levothyroxine 50 mcg tablet 50 mcg PO DAILYBB 12/27/23 12/27/23 History omeprazole 20 mg capsule,delayed 20 mg PO QAM 12/27/23 12/27/23 History release progesterone micronized 200 mg 200 mg PO HS 12/27/23 12/27/23 History capsule spironolactone 50 mg tablet 50 mg PO AMHS 12/27/23 12/27/23 History dicyclomine 20 mg tablet 20 mg PO QID PRN abdominal pain 12/28/23 Rx #10 tabs ondansetron 8 mg disintegrating 8 mg PO Q8H PRN nausea and 12/28/23 Rx tablet vomiting 5 days #10 tabs Patient History Medical History Transgender person on hormone therapy Social History Smoking Status: Never smoker Hx Alcohol Use: Yes Alcohol type: wine Hx Substance Use: No Preferred Language: Syriac Communication Ability: Effective Ballistics Teacher Required: No Beliefs That Will Affect Care: None Current Living Situation: Spouse Feels Safe at Home: Yes Safety Concerns: Feels Safe At This Time Gender Identity: Female Assistive Devices: None Review of Systems Review of Systems: All systems reviewed & are unremarkable except as noted in HPI & below Physical Exam Constitutional: WD/WN, vitals as above Respiratory: normal respiratory effort, lungs clear to auscultation Cardiovascular: Rate/Rhythm: regular rate and regular rhythm Gastrointestinal (Abdomen): normal bowel sounds, soft, nontender, no hepatosplenomegaly Psychiatric: Orientation: alert and oriented x 3 Affect: euthymic affect Results & Data Vital Signs (Past 12 Hours) Vital Signs Pulse Pulse Resp BP Pulse Ox O2 Del Method 12/28/23 07:22 52 L 12/28/23 06:18 60 18 130/82 96 Room Air 12/28/23 03:21 58 L 18 130/82 97 Room Air 12/28/23 01:00 60 18 133/88 97 Room Air 12/27/23 23:45 62 12/27/23 23:00 60 18 129/90 98 Room Air Coding Level of Care Code 87622 OFFICE CONSULT LVL 07/22M Diagnoses Transaminitis R74.01 Upper abdominal pain R10.10 Nausea & vomiting R11.2 Vomiting type: unspecified (3) Nausea & vomiting Vomiting type: unspecified Qualified Code(s): R11.2 - Nausea with vomiting, unspecified
[2023-12-28 10:11] LABS: Hep B Surface Ag with confirm Negative (Negative)
[2023-12-28 10:16] LABS: Hep C Ab Rflx HepCQuant RNA Negative (Negative)
[2023-12-28 14:06] VITALS: O2SAT 98
[2023-12-28 15:08] VITALS: BP 111/73; PULSE 59; RESP 16; TEMP 98.2
--- NOTE | 2023-12-28 17:17 | Discharge Summary ---
Discharge Summary Date of Service December 28, 2023 Principal Dx & Hospital Course #1 = Principal Diagnosis (1) Cholelithiases: (2) Transaminitis: (3) Transgender person on hormone therapy: Plan Patient presented to the emergency room with some nausea vomiting acute abdominal pain. In the emergency room noted to have elevated LFTs. Patient was admitted to the hospital. Initially made n.p.o. and given IV fluid resuscitation. Patient's pain significantly improved. LFTs improved. GI consultation was obtained. Recommended advancing diet. Ultrasound of the abdomen revealed cholelithiasis but no evidence of dilated biliary ducts or cholecystitis. CT of the abdomen pelvis again showed cholelithiasis but no evidence of cholecystitis. Did show some evidence of fatty liver. On the evening of discharge patient was completely symptom-free. His diet was advanced and he tolerated well. Discussion with GI and the patient about pursuing MRCP. Thought is that he may have had some sludge or small gravel that cause some transient obstruction of the biliary common bile duct causing him his acute abdominal pain and elevated LFTs. After educating the patient on the procedure and option for possibly pursuing this as an outpatient patient wanted to give a trial of diet and pursue MRCP as an outpatient. Patient does have an appoint with his PCP tomorrow. The patient will be given a supper. He tolerates that well be discharged to outpatient care and follow-up. Patient significant other at the bedside she also was informed of the decision making process and in agreement. Notes For Next Care Provider MRCP as outpatient Consider rechecking LFTs to show continued improvement Consider outpatient surgical consultation for elective intervention on cholelithiasis Medication Changes From Visit Kiah added for symptom control if there nausea vomiting abdominal cramping returns Admission HPI Per Admitting Provider 28-year-old transgender male to female with past med history significant for hypothyroidism, tracheobronchomalacia, recurrent sinus infection, mild persistent asthma, GERD, history of scrotal mass, migraine, depression presents with abdominal pain and found to have elevated LFTs. Patient states around noon time noticed pain in the abdomen in the right upper quadrant region associated with some nausea and vomiting which prompted patient to come to ER. Currently pain is improved. Denies any fevers. No chest pain or shortness of breath. No cough. No headache no dizziness , no blurred vision. No runny nose or sore throat.. Appetite has been down for last couple of days. Normal bowel and bladder movements. Currently resting comfortably and hemodynamically stable. Past medical history. As mentioned above Past surgical history. Partial removal of benign left thyroid lobe. Appendectomy. Tonsillectomy and adenoidectomy. Repair of inguinal inguinal hernia. Sinus surgery. Social history. No smoking. Drinks alcohol. No drug use. Family history. Mother had Alzheimer's disease. Sister anxiety disorder. Depression. Father had heart disorder. Bradycardia. TIA. Admission Exam Per Admitting Provider See H&P Discharge Exam Constitutional: Alert HEENT: Mucous membranes moist. Lungs: Clear to auscultation, decreased, no wheezes rales or rhonchi CV: S1-S2, regular Abdomen: Soft, nontender, nondistended, no masses Extremities: No significant edema Neuro: No focal deficits Psych: Cooperative, normal mood Updated Medication List Medication Instructions Recorded Confirmed Type cetirizine 10 mg tablet (Zyrtec) 10 mg PO DAILY 12/27/23 12/27/23 History escitalopram oxalate 20 mg tablet 20 mg PO QAM 12/27/23 12/27/23 History estradiol valerate 20 mg/mL See Rx Instructions .Route .COMPLEX 12/27/23 12/27/23 History intramuscular oil levothyroxine 50 mcg tablet 50 mcg PO DAILYBB 12/27/23 12/27/23 History omeprazole 20 mg capsule,delayed 20 mg PO QAM 12/27/23 12/27/23 History release progesterone micronized 200 mg 200 mg PO HS 12/27/23 12/27/23 History capsule spironolactone 50 mg tablet 50 mg PO AMHS 12/27/23 12/27/23 History dicyclomine 20 mg tablet 20 mg PO QID PRN abdominal pain 12/28/23 Rx #10 tabs ondansetron 8 mg disintegrating 8 mg PO Q8H PRN nausea and 12/28/23 Rx tablet vomiting 5 days #10 tabs Hospital Stay Data Consultations 12/27/23 23:54 ED Decision to Admit Stat 12/28/23 08:00 Consult Gastroenterology Routine Diagnostic Imagining Performed 12/27/23 20:03 US gallbladder Stat 12/27/23 21:43 CT abdomen pelvis wo/w con Stat 12/28/23 15:17 MR MRCP Routine Reviewed imaging, laboratory and diagnostic studies. Pertinent findings as below. WBCs 11.1, improved Bilirubin 0.3 improved AST 197 improved ALT 341 improved Alk phos 84, normal Pending Results Patient Have Any Pending Studies at Discharge: Yes Discharge Instructions Given to Patient (Per Discharging Provider) Discussed with your PCP possible outpatient surgical consultation for elective intervention on gallbladder and gallstones Discussed with your PCP MRCP Total Time Total Time Spent Total Time Spent (In Minutes): 48
[2023-12-29 14:32] LABS: Hepatitis A Antibody IgM NON-REACTIVE (NON-REACTIVE); Hepatitis B Core Antibody IgM NON-REACTIVE (NON-REACTIVE)
== END 2023-12-28 18:48 | disposition home or self-care (01) | DRG 446 ==
LOC: ED 18:26 → EDSEX 18:26 → EDINP 12-28 01:39 → SUATTDRO 12-28 01:39 → 3N 12-28 02:03
DX: J45.20 Mild intermittent asthma, uncomplicated; K80.21 Calculus of gallbladder without cholecystitis with obstruction; Z79.899 Other long term (current) drug therapy; E03.9 Hypothyroidism, unspecified; Z79.890 Hormone replacement therapy; F32.A Depression, unspecified; Z88.1 Allergy status to other antibiotic agents; R74.01 Elevation of levels of liver transaminase levels